=== PATIENT | female | born 1955 | race Caucasian/White ===

== ENCOUNTER 2016-12-09 05:51 | Inpatient (IN) | payer BC ==
--- NOTE | 2016-11-25 03:49 | HP ---
HISTORY AND PHYSICAL: DATE OF ADMISSION: 12/09/16 CHIEF COMPLAINT: Right hip pain. HISTORY OF PRESENT ILLNESS: This 61-year-old white female has had pain in her upper right thigh for several years. More recently when she is walking, she has pain in the right hip area. She has severe osteoarthritis and is scheduled with Dr. Doug Altman for a right total hip replacement at on 12/09/16. The patient is currently not working as of mid October because of her pain symptoms. PAST MEDICAL HISTORY: The patient is under the care of Dr. Sukumar Godwin. She has a history of migraines, depression, insomnia. She had a left wrist fracture that still causes her some stiffness and aching. PAST SURGICAL HISTORY: Includes a tonsillectomy as a child. She had her gallbladder removed in 2000 along with a donor right hepatic lobectomy. She has had a right knee arthroscopic procedure, and tubal ligation in the past. CURRENT MEDICATIONS: 1. Prozac 40 mg daily. 2. Claritin 10 mg daily. 3. Trazodone 50 mg b.i.d. p.r.n. 4. Ibuprofen 600 mg 1 to 2 times daily. 5. Tramadol 50 mg 1 to 2 daily p.r.n. pain symptoms. 6. She also takes supplements, vitamin D 1000 mg daily, vitamin C 500 mg yannick ALLERGIES: PENICILLIN has caused hives in the past. FAMILY HISTORY: Mother, diabetes. Father, prostate CA. Her mother, father, brother, and maternal aunt all have had some form of lymphoma. Maternal grandfather, diabetes. SOCIAL HISTORY: The patient lives alone in the [facility]. 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 Her daughter will be coming to help her recover from the hip replacement. She rarely drinks any alcohol and has never used tobacco. REVIEW OF SYSTEMS: She wears glasses. The last couple of weeks, she has been bringing up some white to yellow scant sputum every morning. She denies any cough, dyspnea, chest pain, palpitations or ankle edema symptoms. No GI or urinary symptoms. She does have arthritis of her cervical spine and has been having some low back pain issues, which she relates to the right hip. Otherwise , review of systems is negative to detailed questioning. PHYSICAL EXAMINATION GENERAL: This is a 61-year-old white female who is alert, pleasant, and cooperative. VITAL SIGNS: Height 5 feet 8 inches, weight 168 pounds and stable. Blood pressure 114/64, pulse 74 to 88. HEENT: Eyes: Pupils equal, round, react to light. Ears normal. Mouth: Tongue in midline. Teeth in good repair. Pharynx is clear. NECK: Supple. Good range of motion. No adenopathy. Thyroid benign. BACK: Normal curvature. No acute pain with palpation along the spine or CVA areas. LUNGS: Clear. HEART: Rhythm is regular. Apical pulse 88 beats per minute. EKG shows normal sinus rhythm, within normal limits. Atrial rate at 75. ABDOMEN: Scars from previous liver lobectomy procedure. Active bowel sounds. Otherwise, the abdomen is soft and nontender. No obvious masses or organomegaly. EXTREMITIES: The patient does ambulate unassisted. Joints not evaluated on this visit. She has no cyanosis. No edema. Skin is in good condition of her lower extremities. She does have multiple seborrheic keratoses of her back, trunk area; none look worrisome. IMPRESSION: The patient is medically stable and cleared for her upcoming right total hip replacement with Dr. Doug Altman on 12/09/16. JASS THORNTON NP CC: Sukumar Godwin MD; Doug Altman MD; [facility] * [id number]/CPS #: [id number] MTDD
--- NOTE | 2016-11-30 02:39 | HP ---
HISTORY AND PHYSICAL: DATE OF SURGERY/ADMISSION: 12/09/16 DATE OF OFFICE VISIT: 11/28/16 ATTENDING SURGEON: Doug Altman MD. PROCEDURE: Right total hip arthroplasty. CHIEF COMPLAINT: Right hip pain. HISTORY OF PRESENT ILLNESS: The patient is a very pleasant 61-year-old female who has had pain in her upper right thigh for several years and has failed conservative treatments such as antiinflammatories, hip injection, and physical therapy. She has elected to undergo a right total hip arthroplasty by Dr. Altman on 12/09/16. PAST MEDICAL HISTORY: 1. Migraines. 2. Depression. 3. Insomnia. 4. Healed left wrist fracture. 5. Osteoarthritis. PAST SURGICAL HISTORY: 1. Tonsillectomy. 2. Cholecystectomy 2000, with donor right hepatic lobectomy. 3. Right knee arthroscopy in 2010. 4. x1. 5. Tubal ligation. MEDICATIONS: 1. Prozac 40 mg one tablet daily. 2. Claritin 10 mg one tablet daily. 3. Trazodone 50 mg b.i.d. p.r.n. 4. Ibuprofen 600 mg 1 to 2 times daily p.r.n. 5. Tramadol 50 mg 1 to 2 tablets daily p.r.n. 6. Vitamin D. 7. Vitamin C. 8. Flexeril 10 mg p.r.n. ALLERGIES: PENICILLIN, with a reaction of hives. FAMILY MEDICAL HISTORY: Mother has diabetes, father has prostate cancer. History of lymphoma in mother, father, brother, and maternal aunt. Maternal grandfather has diabetes. SOCIAL HISTORY: The patient lives alone in the [place] area. 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 Her daughter will be coming to help her postoperatively. Rarely drinks alcohol, no tobacco use, and no IV drug use. REVIEW OF SYSTEMS: General: Negative for fevers, chills, or night sweats. No difficulty with anesthesia. HEENT: Negative for headaches, lightheadedness, or syncopal episodes. Integument: Negative for abrasions, lesions, open wounds or sores. Cardiothoracic: Negative for chest pain, palpitations or edema. Negative for hypertension. Pulmonary: Negative for shortness of breath with exertion, cough, or COPD. GI: Positive for constipation. Positive for GERD. Negative for nausea, vomiting or diarrhea. : Negative for nocturia, urinary frequency, urgency, history of UTIs, or kidney problems. Musculoskeletal: Positive for chronic bilateral back pain. Positive for chronic neck pain. Positive for hip pain. Neuro: Negative paresthesias or numbness. No history of seizure, stroke or epilepsy. Endocrine: Negative for diabetes or thyroid disease. Hematologic: Negative for easy bruising, anemia or excessive bleeding. No history of DVT. Infectious Disease: Negative for MRSA, hepatitis C or HIV. Recent cold bite symptoms x1. No fever or chills. PHYSICAL EXAMINATION GENERAL: Well appearing, in no acute distress, alert and oriented female, who appears younger than stated age. VITAL SIGNS: Blood pressure 135/72, pulse rate in the 80s, respiratory rate 16. HEENT: Normocephalic, atraumatic. EOMI. NECK: Supple. Trachea midline. PULMONARY: Lungs are clear to auscultation bilaterally. No crackles, rhonchi or wheezes. CARDIO: Regular rate and rhythm. No murmurs, gallops or rubs. No edema. ABDOMEN: Soft, nontender, nondistended. No organomegaly palpated. Negative CVA tenderness bilaterally. NEUROLOGIC: Alert and oriented x3. Cranial nerves grossly intact. Sensation is intact to light touch to bilateral lower extremities. MUSCULOSKELETAL: Posterior tibial pulses 2+ bilaterally, antalgic gait favoring the right side. Negative Twan's sign bilaterally. No edema noted in bilateral lower extremities. DIAGNOSTIC STUDIES/LAB DATA: Right hip x-ray dated 08/11/2016 shows severe bilateral osteoarthritic changes in the hip. IMPRESSION: The patient is a very pleasant 51-year-old female who has elected to undergo a right total hip replacement with Dr. Doug Altman on 12/09/16. She has undergone preoperative clearance by Dr. Godwin, who states that she is medically stable and cleared for her upcoming hip replacements. The patient wishes to be discharged home after her procedure. She will undergo preoperative testing after today's appointment. Postoperative medications including oxycodone 5 mg was sent to the patient's pharmacy for postoperative pain management as well as a prescription for Flexeril for the patient's current pain management. Laboratory data is within normal limits. The procedure was discussed with the patient at length and she had no further questions or concerns with regard to the planned procedure, she will follow up if any do arise in the future. JEY SORTO [id number]/[facility] #: [id number] CLARA
[~2016-12-09 05:51] MED LIST: Morphine INJ* 2 MG/ML 1 ML CARPUJECT IV PRN; PROCHLORPERAZINE INJ 5 MG/ML 2 ML VIAL IV PRN; fentaNYL* 50 MCG/ML 2 ML VIAL (100 MCG VIAL) IV PRN; oxyCODONE/Acetamin 5/325 MG* TAB PO PRN
[2016-12-09] MEDS ORDERED: Buffered Lidocaine 1% SYR 3ML* 3 ML/SYR SYRINGE INTRADERM ONE (06:00)
[2016-12-09] MEDS ORDERED: Famotidine IV* 10 MG/ML 2 ML (20 mg) IV ONE (06:00)
[2016-12-09] MEDS ORDERED: Clindamycin 900 MG IVPREMIX(* 900 MG/50 ML SDV IV ONE (06:14)
[2016-12-09] MEDS ORDERED: Buffered Lidocaine 1% SYR 3ML* 3 ML/SYR SYRINGE ONE (06:14)
[2016-12-09] MEDS ORDERED: Famotidine IV* 10 MG/ML 2 ML (20 mg) ONE (06:14)
[2016-12-09] MEDS ORDERED: Morphine PF AMP (0.5MG/ML)* 5 MG/10 ML AMP ONE (07:12)
[2016-12-09] MEDS ORDERED: Midazolam* 1 MG/ML 5 ML VIAL (5 MG) ONE (07:12)
[2016-12-09] MEDS ORDERED: fentaNYL* 50 MCG/ML 2 ML VIAL (100 MCG VIAL) ONE (07:12)
[2016-12-09] MEDS ORDERED: KETAMINE HCL* 50 MG/ML 10 ML VIAL ONE (07:12)
[2016-12-09] MEDS ORDERED: ceFAZolin 2 GM PREMIX (*) 2 GM/50 ML BAG IVPB ONE (07:26)
[2016-12-09] MEDS ORDERED: Scopolamine 1.5 mg* PATCH ONE (08:12)
[2016-12-09] MEDS ORDERED: Dexamethasone IV* 4 MG/ML 1 ML (4 MG) ONE (08:12)
[2016-12-09] MEDS ORDERED: Ondansetron INJ* 2 MG/ML VIAL ONE (08:12)
[2016-12-09] MEDS ORDERED: Phenylephrine INJ* 10 MG/ML 1 ML VIAL (10 MG) ONE (08:12)
[2016-12-09] MEDS ORDERED: Propofol* 500 MG/50 ML BTL ONE (08:12)
[2016-12-09] MEDS ORDERED: Lidocaine 2% PF* 10 ML AMP ONE (08:12)
[2016-12-09] MEDS ORDERED: Ondansetron INJ* 2 MG/ML VIAL IV PRN ×2 (08:18→09:52)
[2016-12-09] MEDS ORDERED: PROCHLORPERAZINE INJ 5 MG/ML 2 ML VIAL IV PRN (08:18)
[2016-12-09] MEDS ORDERED: Naloxone* 0.4 MG/ML 1 ML VIAL IV PRN (08:18)
[2016-12-09] MEDS ORDERED: Acetaminophen TAB* 325 MG PO PRN (09:47)
[2016-12-09] MEDS ORDERED: Morphine INJ* 2 MG/ML 1 ML CARPUJECT IV PRN (09:52)
[2016-12-09] MEDS ORDERED: Bisacodyl SUPP* 10 MG SUPP PR PRN (09:52)
[2016-12-09] MEDS ORDERED: oxyCODONE TAB* 5 MG TAB PO PRN (09:52)
[2016-12-09] MEDS ORDERED: traZODone TAB* 50 MG TAB PO PRN (09:52)
[2016-12-09] MEDS ORDERED: Polyethylene Glycol 3350* 17 GM PACKET PO PRN (09:52)
[2016-12-09] MEDS ORDERED: Magnesium Hydroxide LIQ* 30 ML UDC PO PRN (09:52)
--- NOTE | 2016-12-09 10:25 | RAD ---
INDICATION: Postoperative study status post total right hip replacement surgery. TECHNIQUE: An AP view of the pelvis was obtained. FINDINGS: The patient is status post total right hip replacement surgery. The bones and prostheses are in normal alignment. There is air within the soft tissues around the right hip and several surgical abiola present laterally consistent with recent postoperative changes. There is moderate to severe osteoarthritic change in the left hip. IMPRESSION: STATUS POST TOTAL RIGHT HIP REPLACEMENT SURGERY, NORMAL POSTOPERATIVE APPEARANCE.
[2016-12-09] MEDS: Nalbuphine* 20 MG/ML 1 ML VIAL IV PRN ×3 (11:44→23:13)
[2016-12-09] MEDS: Ascorbic Acid TAB* 500 MG PO SCH (11:44)
--- NOTE | 2016-12-09 14:08 | OP ---
DATE OF OPERATION: 12/09/16 - ROOM #341 DATE OF : 51 SURGEON: Doug Altman MD SURGICAL CARE: Right hip. ASSISTANTS: 1. JEY Newsome, Websphere Administrator. 2. An Talley, Machine Trimmer. ANESTHESIOLOGIST: Dr. Juan Hernandez ANESTHESIA: Spinal with Duramorph and IV sedation. PRE-OP DIAGNOSIS: Severe arthritis of the right hip. POST-OP DIAGNOSIS: Severe arthritis of the right hip. OPERATIVE PROCEDURE: Right total hip replacement. COMPONENT UTILIZED: Caitlin components were utilized. A Continuum cup 50 mm outer diameter with cluster holes and 1 screw. An elevated liner for a 32 head was utilized and the elevation was placed posteriorly on the femoral side and ML Taper standard stem size 9 with a +0, 32-mm cobalt chrome head. INDICATIONS: Severe arthritis of the right hip. It has been no longer responsive to nonoperative care and a right total hip replacement was recommended. COMPLICATIONS: There were no complications. DRAINS: There were no drains. BLOOD LOSS: 150 mL. REPLACEMENT: Crystalloid fluid. DESCRIPTION OF PROCEDURE: The patient was brought to the operating room and placed on the operating room table in supine position. Following the administration of the spinal, the patient was returned to the supine position. A Fischer catheter was inserted. She was placed in the left lateral position with axillary padding and there was no pressure on the peroneal nerve at the fibular head on the left leg. The pelvis was secured over the ASIS and the sacrum with hip positioner. The groin was carefully sealed off. Blankets were placed between the knees and the right hip was given a preliminary chlorhexidine prep and then a final ChloraPrep followed by draping. Once we prepped, draped and sealed off, we did our universal protocol time-out, confirming Lawanda Sakowski and a plan for right total hip replacement. We all agreed and we proceeded. The hip was approached with a slightly curving posterolateral skin incision going from the greater trochanter distally for an 1 - 1/2 inches and proximally and posteriorly for 2-1/2 to 3 inches. Skin and subcu divided. Hemostasis was checked and achieved throughout the case utilizing electrocautery. The iliotibial band was opened in line with the skin incision as well as the fascia where the gluteus ladi. A Charnley retractor was inserted. The patient had some tendinitis of the gluteus medius, especially anteriorly. The gluteus medius and minimus were retracted anteriorly with blunt Hohmann retractors and the piriformis and conjoint tendon were undone from their piriformis fossa insertions, each was marked with a separate #2 Surgidac suture and this stitch also included the underlying capsular flap. The hip had clear goldish synovial fluid and a careful posterior approach of the hip was done with careful hemostasis. The hip was dislocated without difficulty. The femoral neck was marked about a fingerbreadth proximal to the lesser trochanter and then divided carefully with a saw. Head and neck removed. The head had synovitis on the superior neck and the complete loss of cartilage on the weightbearing surface with cartilage loss elsewhere as well. On the acetabulum , we used sharp Hohmann anteriorly and posteriorly and blunt Hohmann superiorly and inferiorly and removed the remainder of the labrum posteriorly, superiorly, and anteriorly. The medial osteophyte was carefully removed. Anterior osteophyte was removed after I got the acetabulum in and posterior osteophyte was also excised. The acetabulum was cleaned and then the excess synovium removed as well as the superior side of the transverse acetabular ligament. Reaming was done 44 through 48 and then 49 and 50, we had nice bleeding subchondral cancellous bone. A 50 Continuum cup was impacted into position after cleaning the acetabulum several times with pulse saline and drying. The cup was impacted and positioned in 45 degrees of abduction, 20 degrees of anteversion, and it was bottom down nicely and then a screw was placed superiorly in the elevator liner posteriorly after irrigating again. On the femoral side, we used a canal finder. The trochanteric reamer broaching was done 4 through 9 and at 9, we had a nice tight fit. A trial reduction was done with a 9 broach standard stem and a +0 head and this seemed to be a very satisfactory soft tissue fit. There was no push-pull. There was no levering with IR and ER and flexion of 90 degrees allowed IR and adduction approaching 30 to 40 degrees prior to dislocation. The femoral canal was cleaned with pulse saline. A 9 standard ML Taper was impacted into position in approximately 15 to 20 degrees of anteversion and the trunnion was then cleaned and a +0, 32- mm head was impacted into position. Two drill holes were made through the posterosuperior greater trochanter for reattachment of the piriformis and conjoint tendon on the posterior capsular flap. Careful hemostasis was checked and achieved once again during closure. We irrigated several times during closure with the pulse saline and we swabbed the soft tissues with clean lap sponges. The muscles were reapproximated. The iliotibial band repaired with interrupted #1 Polysorbs in [id number] fashion and on the gluteus ladi more proximally, we used 0 Polysorb. We used 0 and then 2-0 Polysorb on the deep subcu and superficial subcu and then abiola on the skin. The skin was washed and dried and covered with Betadine-soaked release followed by sterile gauze and ABD pad and then paper tape. The patient was returned to the supine position and then to the hospital bed into the recovery room in stable and satisfactory condition having tolerated the procedure very well. The dorsalis pedis pulse was 2+ at the end of the case. CC: Dr. Godwin.* [id number]/[facility] #: [id number] MTDD
[2016-12-09] MEDS: Docusate CAP* 100 MG PO SCH (21:22)
[2016-12-09] MEDS: Ketorolac INJ* 30 MG/ML 1 ML VIAL IV PRN (21:45)
[2016-12-10] MEDS: oxyCODONE/Acetamin 5/325 MG* TAB PO PRN ×3 (02:01→23:59)
[2016-12-10 06:52] LABS: Hematocrit 37 % (35-47); Hemoglobin 12.4 g/dl (12.0-16.0)
[2016-12-10 07:47] LABS: BUN/Creatinine Ratio 25.4 (8-20); Calcium 9.2 mg/dL (8.6-10.3); EGFR African American 106.9 (>60); EGFR Non-African American 83.1 (>60); Potassium 4.3 mmol/L (3.5-5.0)
[2016-12-10] MEDS: Aspirin TAB* 325 MG PO SCH (08:52)
[2016-12-10] MEDS: Cetirizine* 10 MG TAB PO SCH (08:52)
[2016-12-10] MEDS: Magnesium Oxide TAB* 400 MG PO SCH (08:52)
[2016-12-10] MEDS: Cholecalciferol TAB* 1000 UNITS PO SCH (08:52)
[2016-12-10] MEDS: Ascorbic Acid TAB* 500 MG PO SCH (08:52)
[2016-12-10] MEDS: FLUoxetine CAP* 20 MG PO SCH (08:53)
[2016-12-10] MEDS: Docusate CAP* 100 MG PO SCH ×2 (08:53→20:56)
[2016-12-10] MEDS: diPHENhydraMINE IV* 50 MG/ML 1 ml VIAL (BENADRYL) IV PRN ×2 (10:31→20:56)
--- NOTE | 2016-12-10 11:02 | PN ---
Progress Note - Progress Note Note: Anesthesia duramorph followup: the pain has no pain, VSS, no headache, neuro intact. Unfortunately she has severe itching, she's had Nubain, and just had some benadryl. She is better now, if she worsens again, she will let the staff know to contact me.
[2016-12-10] MEDS ORDERED: Dexamethasone TAB* 4 MG PO ONE (13:00)
[2016-12-10] MEDS ORDERED: Nalbuphine* 20 MG/ML 1 ML VIAL IV ONE (13:00)
[2016-12-10] MEDS ORDERED: Nalbuphine* 20 MG/ML 1 ML VIAL IV PRN (17:56)
[2016-12-10] MEDS: Ketorolac INJ* 30 MG/ML 1 ML VIAL IV PRN (20:57)
[2016-12-11 06:46] LABS: Hematocrit 38 % (35-47); Hemoglobin 12.6 g/dl (12.0-16.0)
[2016-12-11] MEDS: Cholecalciferol TAB* 1000 UNITS PO SCH (08:06)
[2016-12-11] MEDS: Magnesium Oxide TAB* 400 MG PO SCH (08:06)
[2016-12-11] MEDS: Docusate CAP* 100 MG PO SCH ×2 (08:06→21:39)
[2016-12-11] MEDS: Ascorbic Acid TAB* 500 MG PO SCH (08:06)
[2016-12-11] MEDS: FLUoxetine CAP* 20 MG PO SCH (08:07)
[2016-12-11] MEDS: Cetirizine* 10 MG TAB PO SCH (08:07)
[2016-12-11] MEDS: Aspirin TAB* 325 MG PO SCH (08:07)
[2016-12-11] MEDS: oxyCODONE/Acetamin 5/325 MG* TAB PO PRN ×4 (08:07→21:44)
[2016-12-11] MEDS: Calcium Carbonate CHEW TAB* 500 MG (TUMS) PO PRN ×2 (11:37)
[2016-12-12 07:22] LABS: Hematocrit 37 % (35-47); Hemoglobin 12.4 g/dl (12.0-16.0)
[2016-12-12] MEDS: Magnesium Oxide TAB* 400 MG PO SCH (07:55)
[2016-12-12] MEDS: Aspirin TAB* 325 MG PO SCH (07:55)
[2016-12-12] MEDS: Docusate CAP* 100 MG PO SCH (07:55)
[2016-12-12] MEDS: FLUoxetine CAP* 20 MG PO SCH (07:55)
[2016-12-12] MEDS: Cetirizine* 10 MG TAB PO SCH (07:55)
[2016-12-12] MEDS: Cholecalciferol TAB* 1000 UNITS PO SCH (07:56)
[2016-12-12] MEDS: oxyCODONE/Acetamin 5/325 MG* TAB PO PRN ×2 (07:56→12:11)
[2016-12-12] MEDS: Ascorbic Acid TAB* 500 MG PO SCH (07:56)
[2016-12-12] MEDS ORDERED: Scopolamine PATCH Remove* 1 NOTE MISC PATCH OFF ONE (09:00)
--- NOTE | 2016-12-12 10:24 | PN ---
Progress Note - Progress Note SOAP: Subjective: POD #3 Right MARY. Doing well, pain well controlled. Denies CP/SOB or calf pain. + BM, appetite good Objective: Vital Signs: Temp Pulse Resp BP Pulse Ox 97.8 F 72 16 123/60 94 12/12/16 07:31 12/12/16 07:31 12/12/16 07:56 12/12/16 07:31 12/12/16 07:31 Gen: A & Ox3, NAD at rest laying in bed Right hip: Dressing C/D/I. Thigh soft, mild ttp. + f/e at knee, ankle, and MTPs Laboratory Results - last 24 hr 12/12/16 06:56 Hgb 12.4 Hct 37 Assessment: POD #3 Right MARY Plan: D/c home today VNS for PT and wound care, abiola out 12/21/16 ASA 325mg po q day for DVT ppx x 3 weeks F/u with Dr. Altman 6 week or prn
[2016-12-12 12:14] VITALS: BP 141/68
--- NOTE | 2016-12-13 08:59 | DS ---
DISCHARGE SUMMARY: DATE OF ADMISSION: 12/09/16 DATE OF DISCHARGE: 12/12/16 ADMITTING DIAGNOSIS: Severe end-stage osteoarthritis of the right hip. DISCHARGE DIAGNOSIS: Severe end-stage osteoarthritis of the right hip, status post right total hip arthroplasty. SECONDARY DIAGNOSES: 1. Migraines. 2. Depression. 3. Insomnia. HISTORY OF PRESENT ILLNESS: Ms. Ding is a 61-year-old female who has had ongoing pain in her upper right thigh and hip for several years. She failed conservative treatment such as antiinflammatories, cortisone injection into the hip, and physical therapy, she elected to undergo total hip arthroplasty by Dr. Altman. HOSPITAL COURSE: On 12/09/16, the patient was admitted to [facility] and underwent a successful right total hip arthroplasty by Dr. Altman. She recovered briefly in the postanesthesia care unit and was transferred to the short stay surgical unit in stable condition. On postop day 1, the patient was able to get out of bed with physical therapy and ambulate a short distance with the use of the rolling walker. Her pain was well controlled with oral pain medication only. Her H and H was 12.4 and 37. Her Fischer catheter was removed on postop day 1 and she was able to void without difficulty. Postop day 2, the patient's pain continued to be well controlled with oral pain medication and H and H 12.6 and 38. She was able to participate in physical therapy without difficulty and ambulate with the use of the rolling walker and minimal assistance. The patient did have a bowel movement on postop day 2. She stated that her appetite was good and was compliant with her posterior hip precautions. On postop day 3, the patient continued to have good pain control with oral pain medications. H and H was stable at 12.4 and 37, and she was ambulating without assistance with a rolling walker. Throughout her hospital course, the patient was afebrile and normotensive. On postop day 3, the patient was found stable for discharge home. DISCHARGE MEDICATIONS: The patient will have: 1. Percocet 5/325, 1 to 2 tabs p.o. q.4 to 6 hours as needed for pain. 2. Colace 100 mg p.o. b.i.d. as needed for constipation. 3. Aspirin 325 mg p.o. daily for DVT prophylaxis. The patient will resume her home medications of: 1. Trazodone 50 mg p.o. q.h.s. p.r.n. 2. Magnesium 250 mg p.o. q. day. 3. Claritin 10 mg p.o. q. day. 4. Ibuprofen 600 mg p.o. b.i.d. p.r.n. 5. Prozac 40 mg p.o. q. day. 6. Feverfew 10 mg p.o. daily. 7. Vitamin D 1000 units p.o. q. day with vitamin C 500 mg p.o. q. day. 8. Calcium 600 mg p.o. q. day. 9. Calcium carbonate tabs 1000 mg p.o. q.4 hours p.r.n. indigestion. DISCHARGE INSTRUCTIONS: The patient is understanding to keep her incision clean and dry until postop day 4, at that time she may shower normally and wash the wound with soap and water. She is understanding not to submerge the wound in a bathtub, hot tub or swimming pool. She is to to apply dry dressing as needed. She was again reminded of the posterior hip precautions not to flex past 90 degrees at the hip, cross her legs over, or turn her toes inward. She will have visiting nurse service for wound care and have staple removal on 12/21. She will also have home physical therapy. She will follow up in the office with Dr. Altman 4 to 6 weeks postoperatively or as needed. She is understanding to go to the emergency room with any chest pain, shortness of breath, fever greater than 101.5, calf pain or swelling. All of her questions were answered to her full satisfaction. JEY CONNELLY [id number]/[facility] #: [id number] CLARA
== END 2016-12-12 12:25 | disposition home health service (06) | DRG 301 ==
LOC: AA 05:51 → SSU 11:13
PROVIDERS: ADMIT Orthopaedic Surgery; ATTEND Orthopaedic Surgery
PROC: 0SR904Z Replacement of Right Hip Joint with Ceramic on Polyethylene Synthetic Substitute, Open Approach (ICD-10-PCS; principal; 2016-12-09 07:30)
DX: M16.11 Unilateral primary osteoarthritis, right hip (principal); F32.9 Major depressive disorder, single episode, unspecified; G47.00 Insomnia, unspecified; G43.909 Migraine, unspecified, not intractable, without status migrainosus; Z79.82 Long term (current) use of aspirin; Z88.0 Allergy status to penicillin; Z98.51 Tubal ligation status; Z83.3 Family history of diabetes mellitus; Z80.7 Family history of other malignant neoplasms of lymphoid, hematopoietic and related tissues; Z80.42 Family history of malignant neoplasm of prostate; G89.29 Other chronic pain; M54.5 Low back pain; L29.9 Pruritus, unspecified
CPT/HCPCS: 36415; 72170; 80048; 85014; 85018; 88304; 88311; 94760; A9270-GY; C1713; C1776; J0690; J1100; J1200; J1885; J2001; J2250; J2300; J2405; J2704; J3010; J8540

== ENCOUNTER 2017-09-22 06:03 | Inpatient (IN) | payer BC ==
--- NOTE | 2017-09-15 18:52 | HP ---
PREOPERATIVE HISTORY AND PHYSICAL: DATE OF SURGERY/ADMISSION: 09/22/17 DATE OF OFFICE VISIT/ENCOUNTER: 09/14/17 PRIMARY CARE PHYSICIAN: Dr. Steffany Head. ATTENDING PHYSICIAN: Doug Altman MD * (DICTATED BY JEY FRANCE) PROCEDURE: Left total hip arthroplasty. CHIEF COMPLAINT: Left hip pain. HISTORY OF PRESENT ILLNESS: This is a 62-year-old female with severe arthritis of her left hip. She has had progressive symptoms and is no longer responsive to nonoperative care. Her ability to walk any distance is limited because of left hip pain and she also has trouble with activities of daily life such as putting on her left sock and shoe. Dr. Altman is recommending surgical intervention at this time in the form of a left total hip arthroplasty and the patient has consented to proceed. PAST MEDICAL HISTORY: 1. Migraines. 2. Depression/anxiety. 3. Seasonal allergies. PAST SURGICAL HISTORY: 1. Right knee arthroscopy. 2. Right total hip arthroplasty. 3. . 4. Tubal ligation. 5. Right hepatic lobectomy in 1999; the patient was a donor. CURRENT MEDICATIONS: 1. Calcium. 2. Loratadine. 3. Magnesium 500 mg daily. 4. Prozac 20 mg daily. 5. Trazodone HCl. ALLERGIES: 1. CAPSAICIN, causes tightness in the chest. 2. PENICILLIN, reaction unknown. 3. OXYCODONE, severe itching. FAMILY HISTORY: Lymphoma and diabetes. 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 She denies tobacco use and recreational drug use. She drinks alcohol on rare occasion. REVIEW OF SYSTEMS: General: Negative for fevers, chills, or night sweats. No known anesthesia problems. HEENT: Positive for occasional migraine headache. Negative for lightheadedness or syncopal episodes. Integumentary: Negative for abrasions, lesions, or open wounds. Cardiothoracic: Negative for hypertension , chest pain, palpitations, and edema. Pulmonary: Positive for seasonal allergies. Negative for shortness of breath with exertion, chronic cough, or COPD. GI: Negative for nausea, vomiting, diarrhea, constipation, or GERD. : Negative for nocturia, urinary frequency, urgency, history of UTIs, or kidney problems. Musculoskeletal: Positive for current complaint. Negative for chronic or intermittent back pain or history of fractures. Neurologic: Negative for paresthesias, numbness, history of seizure, stroke, or epilepsy. Positive for anxiety/depression. Endocrine: Negative for diabetes or thyroid issues. Hematologic: Negative for easy bruising, anemia, excessive bleeding, or history of DVT. Infectious Disease: Negative for history of MRSA, hepatitis C, or HIV. PHYSICAL EXAMINATION GENERAL: Well-developed, well-nourished, 62-year-old female in no acute distress. VITAL SIGNS: Height 5 feet 8 inches, weight 166 pounds, blood pressure 118/72, pulse rate 60. HEENT: Normocephalic, atraumatic. Pupils are equal, round, and reactive to light and accommodation. Extraocular movements are intact. Throat is clear. NECK: Supple. No palpable lymph nodes. PULMONARY: Lungs are clear to auscultation bilaterally. No wheezes, rales, or rhonchi. CARDIOVASCULAR: Regular rate and rhythm. S1 and S2. No murmurs, rubs, or gallops. No edema. ABDOMEN: Positive bowel sounds, soft, nontender. NEUROLOGICAL: Alert and oriented x3. Cranial nerves II through XII are intact. Sensation is intact to light touch. MUSCULOSKELETAL: The patient ambulates with an antalgic gait favoring the left leg. On exam of her left hip, she has painful range of motion, some discomfort with straight leg raising and side lying leg raising. Abduction and flexion of left hip are with pain and internal rotation and external rotation with discomfort. There is no swelling of legs, ankles, or feet. Neurovascular function is intact. IMAGING STUDIES: X-rays of the left hip shows severe degenerative arthritis with [id number] sclerosis, osteophyte formation, and some cysts. IMPRESSION: Severe arthritis, left hip. PLAN: The patient is scheduled to undergo a left total hip arthroplasty with Dr. Altman on 09/22/17. She will return to the office 2 weeks postop for followup and suture removal. A prescription for [place] was e-scribed to the patient's pharmacy for postoperative pain management, she will use Colace p.r.n. for narcotic-induced constipation and she will use aspirin for DVT prophylaxis. She has received clearance to proceed with surgery from her primary care physician, Dr. Steffany Head. JEY FRANCE [id number]/[facility] #: [id number] [facility]ITAL[facility]anga
[~2017-09-22 06:03] MED LIST changes: +Buffered Lidocaine 0.9% SYRIN* 5 ML/SYR SYRINGE INTRADERM ONE; -Morphine INJ* 2 MG/ML 1 ML CARPUJECT IV PRN; -PROCHLORPERAZINE INJ 5 MG/ML 2 ML VIAL IV PRN; -fentaNYL* 50 MCG/ML 2 ML VIAL (100 MCG VIAL) IV PRN; -oxyCODONE/Acetamin 5/325 MG* TAB PO PRN
[2017-09-22] MEDS ORDERED: Buffered Lidocaine 0.9% SYRIN* 5 ML/SYR SYRINGE ONE (06:07)
[2017-09-22] MEDS ORDERED: Clindamycin 900 MG IVPREMIX(* 0 MG/0 ML SDV IV ONE (06:07)
[2017-09-22] MEDS ORDERED: fentaNYL* 50 MCG/ML 2 ML VIAL (100 MCG VIAL) ONE (07:19)
[2017-09-22] MEDS ORDERED: Midazolam* 1 MG/ML 2 ML VIAL (2 MG) ONE ×3 (07:20→09:03)
[2017-09-22] MEDS ORDERED: ceFAZolin 2 GM PREMIX (*) 2 GM/50 ML BAG IVPB ONE (07:20)
[2017-09-22] MEDS ORDERED: Morphine INJ* 10 MG/ML 1 ML CARPUJECT ONE (07:33)
[2017-09-22] MEDS ORDERED: Morphine PF AMP (0.5MG/ML)* 5 MG/10 ML AMP ONE (07:33)
[2017-09-22] MEDS ORDERED: Bupivacaine 0.5% SDV PF* 30 ML VIAL ONE (07:40)
[2017-09-22] MEDS ORDERED: Dexamethasone IV* 4 MG/ML 1 ML (4 MG) ONE (07:59)
[2017-09-22] MEDS ORDERED: EPHEDrine (Pressors)* 50 MG/ML VIAL ONE (07:59)
[2017-09-22] MEDS ORDERED: Famotidine IV* 10 MG/ML 2 ML (20 mg) ONE (07:59)
[2017-09-22] MEDS ORDERED: Lidocaine 2% PF * 5 ML VIAL ONE (08:11)
[2017-09-22] MEDS ORDERED: Propofol* 10 MG/ML 20 ML BTL IV PUSH ONE ×2 (08:11→09:26)
[2017-09-22] MEDS ORDERED: diPHENhydraMINE IV* 50 MG/ML 1 ml VIAL (BENADRYL) ONE ×2 (09:01→10:35)
[2017-09-22] MEDS ORDERED: DiMENhydriNATE IV* 50 MG/ML VIAL IV PUSH PRN (09:12)
[2017-09-22] MEDS ORDERED: Acetaminophen TAB* 325 MG PO PRN ×2 (09:12→10:22)
[2017-09-22] MEDS ORDERED: Morphine INJ* 2 MG/ML 1 ML CARPUJECT IV PRN (09:12)
[2017-09-22] MEDS ORDERED: fentaNYL* 50 MCG/ML 2 ML VIAL (100 MCG VIAL) IV PRN (09:12)
[2017-09-22] MEDS ORDERED: Scopolamine 1.5 mg* PATCH TRANSDERM PRN (09:14)
[2017-09-22] MEDS ORDERED: PROCHLORPERAZINE INJ 5 MG/ML 2 ML VIAL IV PRN (09:14)
[2017-09-22] MEDS ORDERED: Naloxone* 0.4 MG/ML 1 ML VIAL IV PRN (09:14)
[2017-09-22] MEDS ORDERED: Naloxone* 2 MG in NS 0.9% 250 ML* 250 ML IV PRN (09:14)
[2017-09-22] MEDS ORDERED: Nalbuphine* 20 MG/ML 1 ML VIAL IV PRN ×2 (09:14)
[2017-09-22] MEDS ORDERED: Ondansetron INJ* 2 MG/ML VIAL IV PRN (09:14)
[2017-09-22] MEDS ORDERED: Scopolamine PATCH Remove* 1 NOTE MISC PATCH OFF PRN (09:14)
[2017-09-22] MEDS ORDERED: HYDROcodone/ACETAMIN 5-325 MG* 1 TAB PO PRN (09:14)
[2017-09-22] MEDS ORDERED: Hetastarch in NS* 500 ML IV ONE (09:21)
[2017-09-22] MEDS ORDERED: Ketorolac INJ* 30 MG/ML 1 ML VIAL ONE (10:01)
[2017-09-22] MEDS ORDERED: Magnesium Hydroxide LIQ* 30 ML UDC PO PRN (10:22)
[2017-09-22] MEDS ORDERED: traZODone TAB* 50 MG TAB PO PRN (10:31)
[2017-09-22] MEDS: diPHENhydraMINE IV* 50 MG/ML 1 ml VIAL (BENADRYL) IV PRN ×3 (10:38→19:41)
[2017-09-22] MEDS ORDERED: Nalbuphine* 20 MG/ML 1 ML VIAL ONE (10:57)
[2017-09-22] MEDS ORDERED: Desflurane* 240 ML INH ONE (11:17)
[2017-09-22] MEDS ORDERED: Acetaminophen TAB* 325 MG ONE (11:29)
[2017-09-22] MEDS: Acetaminophen TAB* 325 MG PO SCH ×4 (11:30→21:37)
--- NOTE | 2017-09-22 11:34 | RAD ---
HISTORY: Status post left hip arthroplasty COMPARISONS: December 09, 2016 VIEWS: 1, Single frontal view of the pelvis . The right iliac crest is cut off FINDINGS: BONE DENSITY: Normal. BONES: The patient is status post bilateral hip arthroplasty. JOINTS: The patient is status post bilateral hip arthroplasty. ALIGNMENT: There is no dislocation. SOFT TISSUES: Unremarkable. OTHER FINDINGS: None. IMPRESSION: STATUS POST BILATERAL HIP ARTHROPLASTY.
--- NOTE | 2017-09-22 13:12 | OP ---
DATE OF OPERATION: 09/22/17 - ROOM #343 DATE OF : 51 SURGICAL CARE: Left hip. SURGEON: Doug Altman MD ACID PUMPER: JEY Vergara ROLL INSPECTOR: An Talley, [facility] ANESTHESIOLOGIST: Dr. Manzanares. ANESTHESIA: Spinal. PRE-OP DIAGNOSIS: Severe arthritis of the left hip. POST-OP DIAGNOSIS: Severe arthritis of the left hip. OPERATIVE PROCEDURE: Left total hip replacement. COMPONENTS UTILIZED: Caitlin Continuum cup 50-mm outer diameter with 1 screw and elevated liner located posteriorly for a 32 head on the femoral side. There was Caitlin M/L taper standard stem size 9 with a -3.5, 32-mm cobalt- chrome head. COMPLICATIONS: There were no complications. DRAINS: There were no drains. ESTIMATED BLOOD LOSS: 250 mL. REPLACEMENT: Crystalloid fluids. OPERATIVE INDICATIONS: Severe arthritis of the left hip, it has been no longer responsive to nonoperative care, limited walking distance, painful range of movement of the hip and [id number] arthritis on the x-ray. The patient is also status post right total hip replacement. DESCRIPTION OF PROCEDURE: The patient was brought to the operating room and placed on the operating room table in the supine position following the spinal was done with the patient done seated. She was returned to the supine position. A Fischer catheter was inserted. She was placed in the right lateral position, the downside axilla padded, the downside right leg padded, so there was no pressure on the peroneal nerve with the fibular head and neck. The pelvis was secured over the ASIS and the sacrum. The groin was sealed off and a folded blanket was also placed under the right greater trochanter to elevate the pelvis. The hip positioner purchased on the sacrum in the ASIS. The groin was sealed off and the left hip was given a preliminary chlorhexidine prep and then a final formal ChloraPrep for the left lower extremity from the lower ribs to the foot. After prepping, draping and sealing off, we did our universal protocol time-out confirming Lawanda Ding and the plan for left total hip replacement. We all agreed and we proceeded. The Ancef surgical prophylaxis was utilized. The hip was approached with a posterolateral skin incision, going from the greater trochanter distally for an inch and a half and curving proximally and posteriorly for 2-1/2 to 3 inches. Skin and subcu divided down to the deep fascia. The deep fascia was divided over the greater trochanter, dividing the iliotibial band. After this, Charnley retractor was inserted. Minimal trochanteric bursectomy was completed. The posterior aspect of the gluteus medius and the greater trochanter exposed and then a blunt Hohmann retractor was inserted underneath the gluteus medius exposing the piriformis tendon. The piriformis and conjoint tendons were carefully incised from their piriformis fossa insertions and the hip was entered along the superior aspect of the piriformis tendon. The hip had clear synovial fluid. A careful posterior approach to the hip was done with careful hemostasis. A #2 Surgidac sutures were utilized to ninfa the piriformis tendon and the underlying capsular flap and the conjoint tendon in the underlying capsular flap. After this exposure was completed, then the gluteus minimus was also protected with the blunt Hohmann retractor and superior capsulotomy was performed. The hip was dislocated without any difficulty. The femoral neck cut was marked with the cutting guide for the M/L taper stem and the femoral neck was cut about a fingerbreadth proximal to the lesser trochanter. Retraction for the acetabulum was sharp Hohmann's anteriorly and posteriorly, blunt Hohmann's superiorly and inferiorly. The remains of the acetabular labrum were excised sharply, posterior, superior, and anteriorly. The medial osteophyte was excised. An osteophyte was removed posterior inferior and anterior inferior. We had a nice view of the acetabulum at this point. A reaming was done 44 through 50 and at 50, we had nice bleeding subchondral and cancellous bone. A 50 Continuum cup was impacted into position after irrigating the acetabulum several times with pulsed saline. The cup was impacted into 45 degrees of abduction and 20 degrees of anteversion with a nice tight fit and a screw was placed superiorly. An elevated liner was placed posteriorly. Attention was turned to the femoral side after packing the acetabulum. On the femoral side, we used a canal finder. Trochanteric reamer broaching was done size 5 through size 9 and we did a trial reduction with a 9 broach standard neck and a +0 head and this was too tight, so we elected to use a -3.5 neck. The final size 9 M/L taper standard stem was impacted into position and 15 to 20 degrees of anteversion. The trunnion was cleaned and a -3.5 32-mm cobalt- chrome head was impacted into position. The hip was reduced. There was no tendency for push pull and extension and the hip was stable in 90 degrees passive flexion with IR and adduction approaching 30 to 40 degrees prior to dislocation. I felt the soft tissue tension was very satisfactory. We achieved careful hemostasis during the closure. We irrigated during closure with saline and swabbed the soft tissues with clean lap sponges. The piriformis and conjoint tendon were reapproximated to the posterior superior greater trochanter through 2 drill holes. The fascia cora closed with interrupted #1 Vicryl. Distally and then more proximally, we used 0 Vicryl and the deep and superficial subcu closed with 0 Vicryl and then 2-0 Vicryl and then abiola on the skin. Everything was washed and dried. We irrigated several times during closure with the saline and then a dressing was done over the abiola with Betadine-soaked release, sterile gauze, ABD pad, and then paper tape. The patient was returned to the hospital bed and to the recovery room in stable and satisfactory condition, having tolerated the procedure very well. [id number]/[facility] #: [id number] CLARA
[2017-09-22] MEDS: Magnesium Oxide TAB* 400 MG PO SCH ×2 (16:30→17:20)
[2017-09-22] MEDS: ceFAZolin 1 GM VIAL(*) 1 GM in NS 0.9% 50 ML* 50 ML IVPB SCH (16:32)
[2017-09-22] MEDS ORDERED: DiMENhydriNATE IV* 50 MG/ML VIAL ONE (17:17)
[2017-09-22] MEDS: DiMENhydriNATE IV* 50 MG/ML VIAL IV PUSH PRN (17:18)
[2017-09-22] MEDS: Cetirizine* 10 MG TAB PO SCH (17:19)
[2017-09-22] MEDS: Docusate CAP* 100 MG PO SCH (21:36)
[2017-09-22] MEDS ORDERED: Morphine INJ* 2 MG/ML 1 ML SYRINGE (TWO MG - NEW SYRINGE VERSION) IV PRN (23:48)
[2017-09-23] MEDS: ceFAZolin 1 GM VIAL(*) 1 GM in NS 0.9% 50 ML* 50 ML IVPB SCH ×2 (00:22→08:55)
[2017-09-23] MEDS: DiMENhydriNATE IV* 50 MG/ML VIAL IV PUSH PRN ×2 (03:03→08:17)
[2017-09-23] MEDS: HYDROcodone/ACETAMIN 5-325 MG* 1 TAB PO PRN ×4 (05:26→19:23)
[2017-09-23 06:55] LABS: Hematocrit 30 % (35-47); Hemoglobin 10.3 g/dl (12.0-16.0)
[2017-09-23 07:05] LABS: Comments Flag Yes
[2017-09-23 07:12] LABS: BUN/Creatinine Ratio 22.6 (8-20); Calcium 8.7 mg/dL (8.6-10.3); EGFR African American 124.6 (>60); EGFR Non-African American 96.9 (>60); Potassium 4.1 mmol/L (3.5-5.0)
--- NOTE | 2017-09-23 07:55 | PN ---
Progress Note - Progress Note Date of Service: 09/23/17 Note: 98.6 temp, H/H 10.3/30%, basic profile satisfactory. Intake and output are good. X-ray left hip post op is satisfactory. Ancef used for musa op prophylaxsis. Hip pain at rest is nil and some pain with left hip flexion of 70 degrees. Awake, alert, cooperative, breathing easily. Left hip is dry. Left DP is 2 plus. Left ankle active up and down movements. Impression: Stable, acute blood loss anemia. Plans: Up with walker, drinking, and incentive spirometer.
[2017-09-23] MEDS: Ascorbic Acid TAB* 500 MG PO SCH ×2 (08:55→09:01)
[2017-09-23] MEDS: Docusate CAP* 100 MG PO SCH ×2 (08:55→20:25)
[2017-09-23] MEDS: Aspirin TAB* 325 MG PO SCH (08:55)
[2017-09-23] MEDS: FLUoxetine CAP* 20 MG PO SCH (08:55)
[2017-09-23] MEDS ORDERED: diPHENhydraMINE IV* 50 MG/ML 1 ml VIAL (BENADRYL) IV PRN (11:17)
[2017-09-23] MEDS: Cetirizine* 10 MG TAB PO SCH (18:00)
[2017-09-23] MEDS: Magnesium Oxide TAB* 400 MG PO SCH (20:25)
[2017-09-24] MEDS: HYDROcodone/ACETAMIN 5-325 MG* 1 TAB PO PRN ×4 (00:03→19:07)
[2017-09-24 07:04] LABS: Hematocrit 30 % (35-47); Hemoglobin 10.3 g/dl (12.0-16.0)
--- NOTE | 2017-09-24 07:41 | PN ---
Progress Note - Progress Note Date of Service: 09/24/17 Note: 99 degrees and VS stable. More pain left hip and thigh than yesterday. Has done well with physical therapy. Awake, alert, cooperative and NAD at rest. Breathing easily. Maneuvers self to right lateral position for dressing change. Left hip surgery is clean and dry and some clotted blood distally on the surface. Redressed with betadine/telfa, gauze, and paper tape. Exercises done left ankle with active up and down movements. Hct. 30%, same as 09/23. Imp: Stable Plans: Continue rehab. for the total hip.
[2017-09-24] MEDS: Aspirin TAB* 325 MG PO SCH (08:54)
[2017-09-24] MEDS: Docusate CAP* 100 MG PO SCH ×2 (08:54→20:22)
[2017-09-24] MEDS: Ascorbic Acid TAB* 500 MG PO SCH (08:54)
[2017-09-24] MEDS: FLUoxetine CAP* 20 MG PO SCH (08:54)
--- NOTE | 2017-09-24 15:57 | PN ---
Progress Note - Progress Note Date of Service: 09/24/17 SOAP: Subjective: []Patient seen out of bed in chair. She reports no acute complaints and pain is well controlled. No chest pain, shortness of breath, fever, chills, leg numbness or nausea. Objective: [] Vital Signs Temp 98.5 F 09/24/17 11:39 Pulse 75 09/24/17 11:39 Resp 18 09/24/17 11:39 BP 102/45 09/24/17 11:39 Pulse Ox 95 09/24/17 11:39 Intake & Output 09/23/17 09/24/17 09/24/17 18:59 06:59 18:59 Intake Total 1644 560 Output Total 700 500 450 Balance 944 -500 110 Intake: IV Fluids 984 LR 984 Oral 660 560 Output: Urine 700 500 450 Laboratory Last Values Hgb 10.3 g/dl (12.0-16.0) L 09/24/17 06:16 Hct 30 % (35-47) L 09/24/17 06:16 Sodium 137 mmol/L (133-145) 09/23/17 05:39 Potassium 4.1 mmol/L (3.5-5.0) 09/23/17 05:39 Chloride 105 mmol/L (101-111) 09/23/17 05:39 Carbon Dioxide 29 mmol/L (22-32) 09/23/17 05:39 Anion Gap 3 mmol/L (2-11) 09/23/17 05:39 BUN 14 mg/dL (6-24) 09/23/17 05:39 Creatinine 0.62 mg/dL (0.51-0.95) 09/23/17 05:39 Est GFR ( Amer) 124.6 (>60) 09/23/17 05:39 Est GFR (Non-Af Amer) 96.9 (>60) 09/23/17 05:39 BUN/Creatinine Ratio 22.6 (8-20) H 09/23/17 05:39 Glucose 90 mg/dL (70-100) 09/23/17 05:39 Calcium 8.7 mg/dL (8.6-10.3) 09/23/17 05:39 General: Calm, cooperative, well appearing, no acute distress. LLE: Dressing changed by Dr. Altman this morning Bilateral lower extremities: Calves supple and nontender without erythema, edema , palpable cords. Negative tesfaye's sign. DF/PF intact. DP/PT pulses 2+ and symmetric Assessment: []s/p Left total hip arthroplasty 09/22/17, Dr. Altman Plan: []WBAT May shower, do not submerge Aspirin for DVT prophylaxis [place] is controlling pain d/c planned for 09/25
[2017-09-24] MEDS: Cetirizine* 10 MG TAB PO SCH (18:26)
[2017-09-24] MEDS: Magnesium Oxide TAB* 400 MG PO SCH (18:26)
[2017-09-25] MEDS: HYDROcodone/ACETAMIN 5-325 MG* 1 TAB PO PRN ×2 (01:52→04:59)
[2017-09-25 06:22] LABS: Hematocrit 30 % (35-47); Hemoglobin 10.4 g/dl (12.0-16.0)
--- NOTE | 2017-09-25 08:37 | PN ---
Progress Note - Progress Note Date of Service: 09/25/17 SOAP: Subjective: patient sitting in bed with minimal complaints of pain. Objective: Laboratory Last Values Hgb 10.4 g/dl (12.0-16.0) L 09/25/17 05:55 Hct 30 % (35-47) L 09/25/17 05:55 Sodium 137 mmol/L (133-145) 09/23/17 05:39 Potassium 4.1 mmol/L (3.5-5.0) 09/23/17 05:39 Chloride 105 mmol/L (101-111) 09/23/17 05:39 Carbon Dioxide 29 mmol/L (22-32) 09/23/17 05:39 Anion Gap 3 mmol/L (2-11) 09/23/17 05:39 BUN 14 mg/dL (6-24) 09/23/17 05:39 Creatinine 0.62 mg/dL (0.51-0.95) 09/23/17 05:39 Est GFR ( Amer) 124.6 (>60) 09/23/17 05:39 Est GFR (Non-Af Amer) 96.9 (>60) 09/23/17 05:39 BUN/Creatinine Ratio 22.6 (8-20) H 09/23/17 05:39 Glucose 90 mg/dL (70-100) 09/23/17 05:39 Calcium 8.7 mg/dL (8.6-10.3) 09/23/17 05:39 Vital Signs Temp Pulse Resp BP Pulse Ox 98.3 F 85 18 127/66 99 09/25/17 03:52 09/25/17 03:52 09/25/17 04:59 09/25/17 03:52 09/25/17 03:52 incision: c/d; dressing changed PE: NVI Assessment: s/p left MARY Plan: 1) PT/OT- WBAT 2) Home today with ASA 325mg daily for 4 weeks 3) F/U with Agapito in 2 weeks
[2017-09-25 08:55] VITALS: BP 105/65
[2017-09-25] MEDS: Aspirin TAB* 325 MG PO SCH (08:55)
[2017-09-25] MEDS: Docusate CAP* 100 MG PO SCH (08:55)
[2017-09-25] MEDS: FLUoxetine CAP* 20 MG PO SCH (08:56)
[2017-09-25] MEDS: Ascorbic Acid TAB* 500 MG PO SCH (09:15)
--- NOTE | 2017-09-25 11:16 | DS ---
AMENDED REPORT NOW INCLUDES COSIGNER DESIGNATION - ESIGNED BEFORE ADJUSTMENT DISCHARGE SUMMARY: DATE OF ADMISSION: 09/22/17 DATE OF DISCHARGE: 09/25/17 SURGEON: Doug Altman MD * (DICTATED BY JEY MCKOY) PRINCIPAL DIAGNOSIS: Severe end-stage osteoarthritis of the left hip. DISCHARGE DIAGNOSIS: Severe end-stage osteoarthritis of the left hip. HISTORY OF PRESENT ILLNESS: Ms. Ding is a 62-year-old female with complaints of left hip pain secondary to end-stage osteoarthritis. She failed conservative management and elected to proceed with a left total hip arthroplasty. HOSPITAL COURSE: Ms. Ding is a 62-year-old female. She was admitted electively to the hospital on 09/22/17 and underwent a left total hip arthroplasty. She tolerated the procedure well with no complications. Postoperatively, she was placed on aspirin for DVT prophylaxis. On postoperative day #1, her H and H was 10.3 and 30. On postop day #2, 10.3 and 30. On postoperative day #3, 10.4 and 30. Her vital signs remained stable at the time of discharge on 09/25/17. She was ambulating well, afebrile and her vital signs were stable. She was discharged to home. DISCHARGE MEDICATIONS: 1. Jal 5/325 one to two tabs every 4 to 6 hours as needed for pain. 2. Aspirin 325 daily for 4 weeks. 3. Vitamin C 500 mg daily. 4. Cetirizine 10 mg daily. 5. Colace 100 mg 2 to 3 tabs daily. 6. Prozac 40 mg daily. PHYSICAL EXAMINATION UPON DISCHARGE: She was afebrile. Vital signs were stable. Her incision was clean and dry. Her lower extremity muscle group strengths were intact at 5/5. She has intact sensation and is ambulating well with the aide of a walker. DISCHARGE INSTRUCTIONS: She was discharged home in stable condition. She is weightbearing as tolerated. She will take aspirin 325 mg daily for 4 weeks for DVT prophylaxis. She has a prescription for Jal 5/325 one to two tablets every 4 to 6 hours as needed for pain. She will follow up with Dr. Altman in two weeks. We have asked her to call our office with any questions or concerns prior to that visit. JEY MCKOY [id number]/[facility] #: [id number] CLARA
== END 2017-09-25 12:06 | disposition home health service (06) | DRG 301 ==
LOC: AA 06:03 → SSU 13:16
PROVIDERS: ADMIT Orthopaedic Surgery; ATTEND Orthopaedic Surgery
PROC: 0SRB02A Replacement of Left Hip Joint with Metal on Polyethylene Synthetic Substitute, Uncemented, Open Approach (ICD-10-PCS; principal; 2017-09-22 07:30)
DX: M16.12 Unilateral primary osteoarthritis, left hip (principal); Z96.641 Presence of right artificial hip joint; D62 Acute posthemorrhagic anemia; G43.909 Migraine, unspecified, not intractable, without status migrainosus; F32.9 Major depressive disorder, single episode, unspecified; F41.9 Anxiety disorder, unspecified; J30.2 Other seasonal allergic rhinitis; M25.752 Osteophyte, left hip; Z98.51 Tubal ligation status; Z88.8 Allergy status to other drugs, medicaments and biological substances; Z88.0 Allergy status to penicillin; Z88.5 Allergy status to narcotic agent; Z79.82 Long term (current) use of aspirin; Z83.3 Family history of diabetes mellitus; Z80.7 Family history of other malignant neoplasms of lymphoid, hematopoietic and related tissues
CPT/HCPCS: 36415; 72170; 80048; 85014; 85018; A9270-GY; C1713; C1776; J0690; J1100; J1200; J1240; J1885; J2250; J2270; J2300; J2704; J3010

== ENCOUNTER 2019-03-16 14:09 | Emergency (ER) | payer MEDICARE ==
[2019-03-16] MEDS ORDERED: NS 0.9% 1000 ML** 1,000 ML BOLUS ONE (16:05)
[2019-03-16] MEDS ORDERED: Albuterol 2.5 MG/3 ML NEB.SOL* (0.083%) INH ONE ×2 (16:05→17:19)
[2019-03-16] MEDS ORDERED: Ipratropium 0.5MG/2.5ML NEB* 0.5 MG/2.5 ML NEB.SOLN INH ONE (16:05)
[2019-03-16] MEDS ORDERED: methylPREDNISolone 125 MG* 2 ML VIAL IV ONE (16:06)
[2019-03-16] MEDS ORDERED: cefTRIAXone VIAL(*) 1,000 MG in NS 0.9% 50 ML* 50 ML IVPB ONE (16:06)
[2019-03-16] MEDS ORDERED: cefTRIAXone VIAL(*) 1,000 MG VIAL ONE (16:08)
--- NOTE | 2019-03-16 18:20 | UC ---
Respiratory Complaint HPI - HPI Summary HPI Summary: 64 yo female with one week hx of progressively worsening cough and wheezing now with nasal congestion and post nasal drip hx of bronchitis now using her inhaler without any relief no fever chest hurts when she cough was told she had a rash as a toddler on penicllin - History of Current Complaint Chief Complaint: UCRespiratory Stated Complaint: COUGH WHEEZING Time Seen by Provider: 03/16/19 15:31 Hx Obtained From: Patient Onset/Duration: Gradual Onset, Lasting Days Timing: Constant Severity Initially: Mild Severity Currently: Moderate Pain Intensity: 0 Pain Scale Used: 0-10 Numeric Character: Cough: Nonproductive Aggravating Factors: Allergens - ? Alleviating Factors: Nothing Associated Signs And Symptoms: Positive: Wheezing, Nasal Congestion Related History: Similar Episode/Dx as: - Bronchitis - Allergies/Home Medications Allergies/Adverse Reactions: Allergies Allergy/AdvReac Type Severity Reaction Status Date / Time oxycodone Allergy Difficulty Verified 03/16/19 15:02 Breathing Penicillins Allergy Unknown Verified 03/16/19 15:02 Reaction Details PMH/Surg Hx/FS Hx/Imm Hx Previously Healthy: Yes Respiratory History: Bronchitis, Pneumonia - X1 - Surgical History Surgical History: Yes Surgery Procedure, Year, and Place: tonsillectomy 1956. and tubal ligation 1980. Right hepatic lobectomy and cholecystectomy 1999. right knee arhtroscopy 2010. NASIR HIP REPLACEMENTS - Social History Alcohol Use: Rare Substance Use Type: None Smoking Status (MU): Never Smoked Tobacco - Immunization History Most Recent Influenza Vaccination: 2017 Most Recent Tetanus Shot: UTD Most Recent Pneumonia Vaccination: 2010 Review of Systems All Other Systems Reviewed And Are Negative: Yes Constitutional: Positive: Negative Skin: Positive: Negative Eyes: Positive: Negative ENT: Positive: Nasal Discharge Respiratory: Positive: Cough, Other - wheezing Cardiovascular: Positive: Negative Gastrointestinal: Positive: Negative Genitourinary: Positive: Negative Motor: Positive: Negative Musculoskeletal: Positive: Negative Neurological: Positive: Negative Psychological: Positive: Negative Physical Exam Triage Information Reviewed: Yes Appearance: Well-Appearing, No Pain Distress, Well-Nourished Vital Signs: Initial Vital Signs Temp 95.6 F 03/16/19 14:55 Pulse 92 03/16/19 14:55 Resp 18 03/16/19 14:55 BP 118/74 03/16/19 14:55 Pulse Ox 97 03/16/19 14:55 Vital Signs Reviewed: Yes Eyes: Positive: Conjunctiva Clear ENT: Positive: Hearing grossly normal, Nasal congestion, Uvula midline. Negative: Nasal drainage, TMs normal, TM bulging, TM dull, TM red, Tonsillar swelling, Tonsillar exudate, Trismus, Muffled voice, Hoarse voice, Dental tenderness, Sinus tenderness Neck: Positive: Supple, Nontender, No Lymphadenopathy Respiratory: Positive: No respiratory distress, No accessory muscle use, Crackles - Right base, Wheezing, Other: - bronchospastic cough Cardiovascular: Positive: RRR, No Murmur Musculoskeletal: Positive: ROM Intact, No Edema Neurological: Positive: Alert Psychological Exam: Normal Skin Exam: Normal Diagnostics - Radiology No standard instances Radiology Interpretation Completed By: Radiologist - stigmata of copd - EKG Cardiac Rate: NL Cardiac Rhythm: Sinus: Normal Ectopy: None ST Segment: Normal Re-Evaluation - Re-Evaluation First Eval Re-Evaluation Time: 17:10 Change: Worse - feels more dyspneic/shest tighter PFR 250 Third Eval Re-Evaluation Time: 18:10 Change: Worse - feels more dyspneic, PEFR 150 Respiratory Course/Dx - Course Course Of Treatment: worsening despite treatment still with pronounced RLL rales now tachypeic Advise ED RN re transfer No provider available for report - Differential Dx/Diagnosis Provider Diagnosis: Dyspnea Discharge - Sign-Out/Discharge Documenting (check all that apply): Patient Departure All imaging exams completed and their final reports reviewed: No Studies - Discharge Plan Condition: Stable Disposition: TRANS HIGHER L OF CARE FAC Referrals: Steffany Head MD [Primary Care Provider] - - Billing Disposition and Condition Condition: STABLE Disposition: Trans Higher Lvl of Care Fac
[2019-03-16 18:30] VITALS: BP 156/84
== END 2019-03-16 18:35 | disposition short-term general hospital (02) ==
LOC: UCEAST 14:09
DX: R06.00 Dyspnea, unspecified (principal); R05 Cough; R09.81 Nasal congestion; Z88.5 Allergy status to narcotic agent; Z88.0 Allergy status to penicillin
CPT/HCPCS: 71046; 93005; 96360; 96365; 99213; G0463; J0696; J2930

== ENCOUNTER 2019-03-16 18:49 | Inpatient (IN) | payer MEDICARE ==
[2019-03-16] MEDS ORDERED: NS 0.9% 1000 ML** 1,000 ML IV ONE (19:24)
--- NOTE | 2019-03-16 19:24 | ED ---
Respiratory - HPI Summary HPI Summary: Pt is a 64 y/o female brought in by EMS who presents to the ED c/o SOB. 1 week ago she began to have dry cough, SOB, CP with cough, and wheezing. Yesterday she then began to have congestion, chills, and post-nasal drip. Pt denies any fever. She was sent here from the for further evaluation. At the an EKG was normal and a CXR revealed stigmata of COPD. Pt denies any hx of COPD. She was given 125 mg Solumedrol and two albuterol treatments, which made her SOB worse. Pt was also given IV Rocephin. She has been using Robitussin and her inhaler without relief. As per medical records, PMHx asthma, allergies, bronchitis, PNA. Pt denies any smoking. - History of Current Complaint Chief Complaint: EDShortnessOfBreath Stated Complaint: DIFFICULTY BREATHING PER EMS Time Seen by Provider: 03/16/19 19:17 Hx Obtained From: Patient, EMS, Medical Records Onset/Duration: Gradual Onset, Lasting Weeks - 1, Worse Since Timing: Constant Current Severity: None Pain Intensity: 0 Character: Wheezing, Cough (Nonproductive), Dyspnea at Rest Sputum Amount: None Associated Signs and Symptoms: SOB, Wheezing, Chest Pain with Cough, Chills, Nasal Congestion Related History: Similar Episode/Dx as - hx bronchitis, PNA - Allergy/Home Medications Allergies/Adverse Reactions: Allergies Allergy/AdvReac Type Severity Reaction Status Date / Time oxycodone Allergy Difficulty Verified 03/16/19 15:02 Breathing Penicillins Allergy Unknown Verified 03/16/19 15:02 Reaction Details PMH/Surg Hx/FS Hx/Imm Hx Endocrine/Hematology History: Denies: Hx Diabetes Cardiovascular History: Denies: Hx Hypertension, Hx Pacemaker/ICD Respiratory History: Reports: Hx Asthma - multiple pneumonias, Other Respiratory Problems/Disorders - pneumonia x3, bronchitis x1 GI History: Reports: Other GI Disorders - donated portion of liver 1999 History: Denies: Hx Renal Disease Musculoskeletal History: Reports: Hx Arthritis - bilateral hips, neck Denies: Hx Osteoporosis Sensory History: Reports: Hx Contacts or Glasses - glasses Denies: Hx Hearing Aid Opthamlomology History: Reports: Hx Contacts or Glasses - glasses Neurological History: Reports: Hx Migraine Psychiatric History: Reports: Hx Anxiety, Hx Depression Denies: Hx Panic Disorder - Cancer History Hx Chemotherapy: No Hx Radiation Therapy: No - Surgical History Surgery Procedure, Year, and Place: tonsillectomy 1956. and tubal ligation 1980. Right hepatic lobectomy and cholecystectomy 1999. right knee arhtroscopy 2010. NASIR HIP REPLACEMENTS Hx Anesthesia Reactions: No Infectious Disease History: No Infectious Disease History: Denies: Traveled Outside the [place] in Last 30 Days - Family History Known Family History: Positive: Other - [place] - Social History Alcohol Use: Rare Hx Substance Use: No Substance Use Type: Reports: None Hx Tobacco Use: No Smoking Status (MU): Never Smoked Tobacco Review of Systems Positive: Chills. Negative: Fever Positive: Other - congestion, post-nasal drip Positive: Chest Pain - with cough Positive: Shortness Of Breath, Cough, Other - wheezing All Other Systems Reviewed And Are Negative: Yes Physical Exam - Summary Physical Exam Summary: Appearance: well appearing, no pain distress Skin: warm, dry, reflects adequate perfusion Head/face: normal Eyes: EOMI, JOHANN ENT: mucous membranes moist Neck: supple, non-tender Respiratory: diffuse wheezes, breath sounds present, labored breathing Cardiovascular: RRR, pulses symmetrical Abdomen: non-tender, soft Bowel Sounds: present Musculoskeletal: normal, strength/ROM intact Neuro: normal, sensory motor intact, A&Ox3 Triage Information Reviewed: Yes Vital Signs On Initial Exam: Initial Vitals Temp Pulse Resp BP Pulse Ox 98.4 F 88 16 148/92 96 03/16/19 19:01 03/16/19 19:01 03/16/19 19:01 03/16/19 19:01 03/16/19 19:01 Vital Signs Reviewed: Yes Diagnostics - Vital Signs Vital Signs Temp Pulse Resp BP Pulse Ox 03/16/19 19:01 98.4 F 88 16 148/92 96 - Laboratory Result Diagrams: 03/16/19 19:57 03/16/19 19:58 Lab Statement: Any lab studies that have been ordered have been reviewed, and results considered in the medical decision making process. - EKG 20:55 Cardiac Rate: NL - 83 bpm EKG Rhythm: Sinus Rhythm ST Segment: Normal Summary of EKG Findings: Nl axis, prolonged QT interval 506 Re-Evaluation - Re-Evaluation First Eval Re-Evaluation Time: 20:04 Change: Unchanged Comment: Pt is currently having the breathing treatment and is slightly more comfortable. Disposition - Course Course Of Treatment: Patient presents from urgent care by ambulance with respiratory distress. She actually felt worse after breathing treatments there. She has diffuse wheezes and increased respiratory work. She was started on high velocity nasal insufflation CPAP by Vapotherm with immediate improvement. She continued to get breathing treatments and also received IV fluids, antibiotics and IV magnesium. The hospitalist was contacted and will admit. She will be transitioned off the Vapotherm prior to moving to the floor. She did receive IV antibiotics in the urgent care prior to being brought here. There is no infiltrate on x-ray. - Differential Dx - Cardiopulmonary Differential Diagnoses - Cardiopulmonary: Other - Asthma, COPD, pneumonia, vocal cord dysfunction, influenza - Diagnoses Provider Diagnoses: COPD exacerbation, Lactic acidosis - Physician Notifications Discussed Care Of Patient With: Maurice Menchaca Time Discussed With Above Provider: 20:53 Instructed by Provider To: Admit As Inpatient - Critical Care Time Critical Care Time: 30-74 min - CCT is EXCLUSIVE of separately billable procedures. Discharge - Sign-Out/Discharge Documenting (check all that apply): Patient Departure - Admit Patient Received Moderate/Deep Sedation with Procedure: No - Discharge Plan Condition: Fair Disposition: ADMITTED TO [facility] - Billing Disposition and Condition Condition: FAIR Disposition: Admitted to [facility] - Attestation Statements Document Initiated by Fernanda: Yes Documenting Scribe: Elin Harrington Provider For Whom Abdielibe is Documenting (Include Credential): Jono Wyman MD Scribe Attestation: Elin Gill, scribed for Jono Wyman MD on 03/17/19 at 0626. Scribe Documentation Reviewed: Yes Provider Attestation: The documentation as recorded by the Elin cartagena accurately reflects the service I personally performed and the decisions made by me, Jono Wyman MD Status of Scribe Document: Viewed
[2019-03-16] MEDS ORDERED: Levalbuterol 1.25MG/0.5ML NEB INH ONE (19:25)
[2019-03-16] MEDS ORDERED: Magnesium Sulfate 1 GM IV* 1 GM/100 ML BAG IV ONE (19:25)
[2019-03-16] MEDS ORDERED: Ipratropium 0.5MG/2.5ML NEB* 0.5 MG/2.5 ML NEB.SOLN INH ONE (19:25)
[2019-03-16 19:49] LABS: Influenza A Molecular NEGATIVE (Negative); Influenza B Molecular NEGATIVE (Negative)
[2019-03-16 20:14] LABS: ABS Basophils 0 10^3/ul (0-0.2); ABS Eosinophils 0 10^3/ul (0-0.6); ABS Lymphocytes 0.4 10^3/ul (1.0-4.8); ABS Monocytes 0.2 10^3/ul (0-0.8); ABS Neutrophils 6.2 10^3/ul (1.5-7.7); ABS Nucleated RBC 0 10^3/ul; Eosinophil % 0 %; Hematocrit 47 % (35-47); Hemoglobin 15.8 g/dL (12.0-16.0); Lymphocyte % 5.9 %; Mean Corpuscular HGB Conc 34 g/dL (31-36); Mean Corpuscular Hemoglobin 30 pg (27-31); Mean Corpuscular Volume 89 fL (80-97); Nucleated Red Blood Cells % 0; Platelet Count 198 10^3/uL (150-450); Red Blood Count 5.21 10^6 /uL (3.70-4.87); Red Cell Distribution Width 14 % (10.5-15); White Blood Count 6.8 10^3/uL (3.5-10.8)
[2019-03-16 20:31] LABS: Albumin 4.4 g/dL (3.2-5.2); Albumin/Globulin Ratio 1.4 (1-3); BUN/Creatinine Ratio 21.3 (8-20); Calcium 9.2 mg/dL (8.6-10.3); EGFR African American 93.5 (>60); EGFR Non-African American 77.3 (>60); Globulin 3.1 g/dL (2-4); Potassium 3.6 mmol/L (3.5-5.0); Total Bilirubin 0.4 mg/dL (0.2-1.0); Total Protein 7.5 g/dL (6.4-8.9)
[2019-03-16] MEDS ORDERED: Azithromycin 500 mg/250 ml NS 500 MG/250 ML BAG IVPB ONE (20:37)
[2019-03-16] MEDS ORDERED: Azithromycin 500 mg/250 mL NS IVPB ONE (21:00)
[2019-03-16] MEDS ORDERED: Enoxaparin(*) 40 MG/0.4 ML SYR SUBCUT SCH (23:45)
[2019-03-16] MEDS ORDERED: methylPREDNISolone 125 MG* 2 ML VIAL IV ONE (23:59)
[2019-03-16] MEDS ORDERED: Acetaminophen TAB* 325 MG PO PRN (23:59)
[2019-03-16] MEDS ORDERED: Ipratropium 0.5MG/2.5ML NEB* 0.5 MG/2.5 ML NEB.SOLN INH PRN (23:59)
[2019-03-17] MEDS ORDERED: LORazepam TAB(*) 1 MG PO PRN (00:19)
--- NOTE | 2019-03-17 00:27 | ADMNOTE ---
Subjective Date of Service: 03/16/19 Interval History: HISTORY and PHYSICAL PCP: Adilene CC: dyspnea HPI: Patient is a 64 year old woman with no chronic pulmonary issues who developed fatigue, weakness about 1 week prior to admission. She then developed dyspnea about 4 days ago, which progressed notably, leading her to go to urgent care today. She has a constant non-productive cough, denies fever. She has some anterior chest pain that feels related to dyspnea. She does admit to chest pressure. She presented to urgent care, had a chest X-ray, was given solumedrol 125 mg IV. and transferred to ER. She had tremors after albuterol nebulizer in urgent care, that caused anxiety and more dyspnea. Family History: Findings - Mother , had diabetes, MGF also of complications of diabetes, Mother, father, brother and aunt had lymphoma Social History: Findings - Retired nurse, , 4 children, never smoker, rare alcohol, no drugs Past Medical History: Findings - osteoarthritis, anxiety, migraine headache; PSH ; partial liver donor, bilateral hip replacement, X1 Review of Systems - Measurements Intake and Output: Intake and Output Last 24 Hours 03/14/19 03/15/19 03/16/19 03/17/19 06:59 06:59 06:59 06:59 Intake Total 1100 Balance 1100 Weight 74.843 kg Intake: IV Fluids 1100 - Review of Systems Constitutional Symptoms: Positive: Weakness Negative: Fever Dermatology: Positive: Normal HEENT: Positive: Normal Eyes: Positive: Normal Thyroid: Positive: Normal Pulmonary: Positive: Cough, Respiratory Distress, Shortness of Breath Negative: Sputum, COPD, Asthma Cardiology: Positive: Chest Pain Negative: Palpitations Gastroenterology: Positive: Normal Genital - Urinary: Positive: Normal Genitourinay - Female: Positive: Menopause Musculoskeletal: Positive: Arthritis Endocrinology: Positive: Normal Hematologic/Lymphatic: Negative: Anemia Neurology: Positive: Migraines Psychiatry: Positive: Anxiety Allergic/Immunologic: Positive: Hx Seasonal Objective Active Medications: Home Medications: See Medication Reconciliation Sheet Vital Signs - 8 hr 03/16/19 03/16/19 03/16/19 21:46 22:00 22:16 Temperature Pulse Rate 84 87 83 Respiratory 17 15 20 Rate Blood Pressure 152/77 145/76 (mmHg) O2 Sat by Pulse 96 94 92 Oximetry 03/16/19 03/16/19 03/16/19 22:46 23:00 23:16 Temperature Pulse Rate 80 84 82 Respiratory 18 22 16 Rate Blood Pressure 146/70 144/69 (mmHg) O2 Sat by Pulse 95 96 95 Oximetry 03/16/19 03/17/19 23:46 00:00 Temperature Pulse Rate 81 82 Respiratory 12 15 Rate Blood Pressure 141/72 (mmHg) O2 Sat by Pulse 91 95 Oximetry Oxygen Devices in Use Now: High Flow Heated Nasal Cannula Appearance: alert, no resp distress Eyes: No Scleral Icterus Ears/Nose/Mouth/Throat: Clear Oropharnyx Neck: NL Appearance and Movements; NL JVP Respiratory: Symmetrical Chest Expansion and Respiratory Effort, - - ronchi RT base Cardiovascular: NL Sounds; No Murmurs; No JVD, RRR Abdominal: NL Sounds; No Tenderness; No Distention, No Hepatosplenomegaly Lymphatic: No Cervical Adenopathy Extremities: No Edema Skin: No Rash or Ulcers Neurological: Alert and Oriented x 3 Lines/Tubes/Other Access: Clean, Dry and Intact Peripheral IV Nutrition: Taking PO's Result Diagrams: 03/16/19 19:57 03/16/19 19:58 Diagnostic Imaging: CXR: no infiltrates, hyperinflation EKG Data: NSR, rate 83, QT prolonged, no ST/T-wave deviation Assess/Plan/Problems-Billing Assessment: 64 year old woman with acute dyspnea, differential includes bronchitis, pneumonia, pulmonary embolism, cardiac disease - Patient Problems (1) Dyspnea and respiratory abnormality Current Visit: Yes Status: Acute Priority: High Code(s): R06.00 - DYSPNEA , UNSPECIFIED; R06.89 - OTHER ABNORMALITIES OF BREATHING SNOMED Code(s): 085527008 Comment: -Will have d-dimer drawn now, with CTA chest if elevated, as PE is in differential -Admit to medical service, treat empirically for pneumonia and COPD exacerbation with nebulizers and oral prednisone -Azithromycin started in ER, will add ceftriaxone if pneumonia confirmed on CT chest. -Venous blood gas consistent with respiratory alkalosis, with some metabolic compensation -Dyspnea could be due to cardiac ischemia, will monitor on telemetry, and follow troponins (2) Lactic acid blood increased Current Visit: Yes Status: Acute Priority: Medium Code(s): R79.89 - OTHER SPECIFIED ABNORMAL FINDINGS OF BLOOD CHEMISTRY SNOMED Code(s): 1061456 Comment: -Patient not currently septic, has tachypnea, no other criteria -Will repeat lactate post 3 hours (3) DVT prophylaxis Current Visit: Yes Status: Acute Priority: Low Code(s): AKN8988 - SNOMED Code(s): 529376268 Comment: -Moderate risk -SC lovenox Status and Disposition: inpatient
[2019-03-17 00:57] LABS: Activated Partial Thrombo Time 28.1 seconds (26.0-36.3); INR 1.11 (0.82-1.09)
[2019-03-17] MEDS ORDERED: Iohexol 350* (CONTRAST) 500 ML MDV IV ONE (02:12)
[2019-03-17] MEDS: Enoxaparin(*) 40 MG/0.4 ML SYR SUBCUT SCH ×2 (03:05→21:36)
[2019-03-17 07:21] LABS: Troponin I 0.01 ng/mL (<0.04)
[2019-03-17 07:26] LABS: Calcium 9.1 mg/dL (8.6-10.3); EGFR African American 131.1 (>60); EGFR Non-African American 108.3 (>60); Potassium 4.2 mmol/L (3.5-5.0)
[2019-03-17] MEDS: predniSONE TAB* 50 MG PO SCH (09:11)
[2019-03-17] MEDS: FLUoxetine CAP* 20 MG PO SCH (09:11)
[2019-03-17] MEDS: cefTRIAXone VIAL(*) 1,000 MG in NS 0.9% 50 ML* 50 ML IVPB SCH (09:12)
[2019-03-17 11:47] LABS: C Reactive Protein 41.36 mg/L (<8.01); Magnesium 2.1 mg/dL (1.9-2.7)
[2019-03-17] MEDS ORDERED: Azithromycin 500 mg/250 ml NS 500 MG/250 ML BAG IVPB SCH (17:00)
[2019-03-17] MEDS: Cholecalciferol TAB* 1000 UNITS PO SCH (17:46)
[2019-03-17] MEDS: traZODone TAB* 50 MG TAB PO PRN (22:41)
[2019-03-18 06:22] LABS: ABS Lymphocytes 1.2 10^3/ul (1.0-4.8); ABS Monocytes 0.8 10^3/ul (0-0.8); ABS Neutrophils 6.4 10^3/ul (1.5-7.7); Eosinophil % 0.2 %; Hematocrit 46 % (35-47); Hemoglobin 15.4 g/dL (12.0-16.0); Lymphocyte % 14.6 %; Mean Corpuscular HGB Conc 33 g/dL (31-36); Mean Corpuscular Hemoglobin 30 pg (27-31); Mean Corpuscular Volume 90 fL (80-97); Platelet Count 197 10^3/uL (150-450); Red Blood Count 5.16 10^6 /uL (3.70-4.87); Red Cell Distribution Width 15 % (10.5-15); White Blood Count 8.5 10^3/uL (3.5-10.8)
[2019-03-18 06:27] LABS: ALT 18 U/L (7-52); Albumin 3.7 g/dL (3.2-5.2); Albumin/Globulin Ratio 1.4 (1-3); Alkaline Phosphatase 32 U/L (34-104); BUN/Creatinine Ratio 32.4 (8-20); Blood Urea Nitrogen 22 mg/dL (6-24); C Reactive Protein 17.94 mg/L (<8.01); CO2 Carbon Dioxide 22 mmol/L (22-32); Calcium 9.2 mg/dL (8.6-10.3); Chloride 111 mmol/L (101-111); EGFR African American 104.7 (>60); EGFR Non-African American 86.6 (>60); Globulin 2.7 g/dL (2-4); Glucose 85 mg/dL (70-100); Sodium 140 mmol/L (135-145); Total Protein 6.4 g/dL (6.4-8.9)
[2019-03-18 07:33] LABS: Urine Appearance Clear; Urine Bilirubin Negative (Negative); Urine Blood Negative (Negative); Urine Color Yellow; Urine Glucose Negative (Negative); Urine Ketones Negative (Negative); Urine Nitrite Negative (Negative); Urine Protein Negative (Negative); Urine Specific Gravity 1.014 (1.010-1.030); Urine Urobilinogen Negative (Negative)
[2019-03-18] MEDS: Levalbuterol 1.25MG/0.5ML NEB INH PRN ×2 (08:29→14:26)
[2019-03-18 08:40] LABS: Anion Gap 7 mmol/L (2-11)
[2019-03-18] MEDS: FLUoxetine CAP* 20 MG PO SCH (08:47)
[2019-03-18] MEDS: cefTRIAXone VIAL(*) 1,000 MG in NS 0.9% 50 ML* 50 ML IVPB SCH (08:48)
[2019-03-18] MEDS: predniSONE TAB* 50 MG PO SCH (08:48)
[2019-03-18] MEDS ORDERED: DOXYCYCLINE HYCLATE 50 MG CAP (NF) PO SCH (10:00)
[2019-03-18 10:05] LABS: Potassium Redraw 3.6 mmol/L (3.5-5.0)
[2019-03-18] MEDS: DOXYcycline CAP(*) 100 MG PO SCH ×2 (11:48→20:02)
[2019-03-18] MEDS: Fluticasone NASAL SPRAY 50MCG* 16 gm SPRAY BTL BOTH NARES SCH (11:48)
[2019-03-18] MEDS: Cetirizine* 10 MG TAB PO SCH (11:48)
[2019-03-18] MEDS: Cholecalciferol TAB* 1000 UNITS PO SCH (17:12)
[2019-03-18] MEDS: Enoxaparin(*) 40 MG/0.4 ML SYR SUBCUT SCH (20:00)
[2019-03-18] MEDS: guaiFENesin ER TAB 600 MG PO SCH (21:06)
[2019-03-18] MEDS: traZODone TAB* 50 MG TAB PO PRN (22:04)
[2019-03-19] MEDS: cefTRIAXone VIAL(*) 1,000 MG in NS 0.9% 50 ML* 50 ML IVPB SCH (07:26)
[2019-03-19 08:10] VITALS: BP 150/74
--- NOTE | 2019-03-19 08:45 | PN ---
Subjective - Subjective Reason for Note: Discharge Note History: Discharge summary She is feeling much better today. She has an irritating, non-productive cough. She has had no fevers, sweats or chills. She would like to go home Active Problems: Active Problems Dyspnea and respiratory abnormality (Acute) R06.00, R06.89 -Will have d-dimer drawn now, with CTA chest if elevated, as PE is in differential -Admit to medical service, treat empirically for pneumonia and COPD exacerbation with nebulizers and oral prednisone -Azithromycin started in ER, will add ceftriaxone if pneumonia confirmed on CT chest. -Venous blood gas consistent with respiratory alkalosis, with some metabolic compensation - Dyspnea could be due to cardiac ischemia, will monitor on telemetry, and follow troponins Elevated BP without diagnosis of hypertension (Acute) R03.0 Lactic acid blood increased (Acute) R79.89 -Patient not currently septic, has tachypnea, no other criteria -Will repeat lactate post 3 hours Right lower lobe pneumonia (Acute) J18.1 DVT prophylaxis (Chronic) [id number] -Moderate risk -SC lovenox Current Medications: Current Medications Acetaminophen (Tylenol Tab*) 650 mg PO Q4H PRN PRN Reason: FEVER/HEADACHE Cetirizine HCl (Zyrtec*) 10 mg PO DAILY [facility] Last Admin: 03/18/19 11:48 Dose: 10 mg Cholecalciferol (Vitamin D Tab*) 1,000 units PO QPM [facility] Last Admin: 03/18/19 17:12 Dose: 1,000 units Doxycycline Hyclate (Vibramycin Cap(*)) 100 mg PO BID [facility] Last Admin: 03/18/19 20:02 Dose: 100 mg Enoxaparin Sodium (Lovenox(*)) 40 mg SUBCUT BEDTIME [facility] Last Admin: 03/18/19 20:00 Dose: 40 mg Fluoxetine HCl (Prozac Cap*) 40 mg PO QAM [facility] Last Admin: 03/18/19 08:47 Dose: 40 mg Fluticasone Propionate (Flonase Nasal [place] 50mcg*) 2 spray BOTH NARES DAILY [facility] Last Admin: 03/18/19 11:48 Dose: 2 spray Guaifenesin (Mucinex*) 1,200 mg PO BID [facility] Last Admin: 03/18/19 21:06 Dose: 1,200 mg Ceftriaxone Sodium 1,000 mg/ (Sodium Chloride) 50 mls @ 200 mls/hr IVPB Q24H [facility] Last Admin: 03/19/19 07:26 Dose: 200 mls/hr Ipratropium [place] (Atrovent 0.5 Mg Neb.Anabella*) 0.5 mg INH Q6H PRN PRN Reason: SOB/WHEEZING Levalbuterol HCl (Xopenex 1.25 Mg/0.5 Ml Neb.Anabella*) 1.25 mg INH Q6H PRN PRN Reason: SOB/WHEEZING Last Admin: 03/18/19 14:26 Dose: 1.25 mg Lorazepam (Ativan Tab(*)) 1 mg PO Q4H PRN PRN Reason: ANXIETY Last Admin: 03/17/19 03:28 Dose: 1 mg Prednisone (Deltasone Tab*) 50 mg PO DAILY [facility] Last Admin: 03/18/19 08:48 Dose: 50 mg Trazodone HCl (Desyrel Tab*) 100 mg PO BEDTIME PRN PRN Reason: INSOMNIA Last Admin: 03/18/19 22:04 Dose: 50 mg Home Medications: Home Medications Medication Instructions Recorded Confirmed Type Cholecalciferol (Vitamin D3) 1,000 unit PO QPM 11/28/16 03/17/19 History [Vitamin D3] Fluoxetine HCl [Prozac] 40 mg PO QAM 11/28/16 03/17/19 History Ibuprofen [Ibuprofen 200 MG] 600 mg PO BID 11/28/16 03/16/19 History Magnesium 250 mg PO QPM 11/28/16 03/17/19 History traZODone TAB* [Desyrel TAB*] 50 - 100 mg PO BEDTIME PRN 11/28/16 03/17/19 History Allergies: Allergies Allergy/AdvReac Type Severity Reaction Status Date / Time oxycodone Allergy Difficulty Verified 03/16/19 15:02 Breathing Penicillins Allergy Unknown Verified 03/16/19 15:02 Reaction Details Objective - Vital Signs Vital Signs: Vital Signs 03/18/19 03/18/19 03/18/19 11:03 14:29 15:08 Temperature 97.6 F Pulse Rate 69 69 81 Respiratory 14 16 Rate Blood Pressure 146/65 (mmHg) O2 Sat by Pulse 94 97 94 Oximetry 03/18/19 03/19/19 03/19/19 20:00 00:09 07:46 Temperature 97.2 F 97.7 F Pulse Rate 78 56 Respiratory 18 22 18 Rate Blood Pressure 132/70 150/74 (mmHg) O2 Sat by Pulse 97 93 Oximetry 03/19/19 08:10 Temperature 97.7 F Pulse Rate 56 Respiratory 18 Rate Blood Pressure 150/74 (mmHg) O2 Sat by Pulse 93 Oximetry - Intake and Output Intake and Output: Intake & Output 03/16/19 03/17/19 03/18/19 03/19/19 11:59 11:59 11:59 11:59 Intake Total 1100 1370 1865 Output Total 200 Balance 1100 1370 1665 Weight 171 lb 12.8 oz Intake: IV Fluids 1100 50 55 rocefin 50 55 Oral 0 1320 1810 Output: Urine 200 Other: Estimated Void Medium # Bowel Movements 0 # Voids 2 2 ADLs: Meal Record Start: 03/17/19 01: 25 Freq: DAILY@0900,1400,1800 Status: Active Protocol: Created 03/17/19 01:25 System (Rec: 03/17/19 01:25 System [id number]) Document 03/17/19 09:00 [id number] (Rec: 03/17/19 12:30 [id number] TELE-C01) Document 03/17/19 14:00 [id number] (Rec: 03/17/19 14:28 [id number] TELE-C13) Document 03/17/19 18:00 [id number] (Rec: 03/17/19 18:07 [id number] TELE-C01) Document 03/18/19 09:00 [id number] (Rec: 03/18/19 10:25 [id number] TELE-C01) Document 03/18/19 14:00 [id number] (Rec: 03/18/19 14:40 [id number] TELE-C01) Document 03/18/19 18:00 [id number] (Rec: 03/18/19 18:14 [id number] TELE-C13) Intake and Output Start: 03/16/19 19: 06 Freq: Status: Active Protocol: Created 03/16/19 19:06 System (Rec: 03/16/19 19:06 System [id number]) Intake and Output Start: 03/17/19 01: 25 Freq: DAILY@0600,1400,2200 Status: Active Protocol: Created 03/17/19 01:25 System (Rec: 03/17/19 01:25 System [id number]) Document 03/17/19 06:00 [id number] (Rec: 03/17/19 06:41 [id number] TELE-C32) Document 03/17/19 14:00 [id number] (Rec: 03/17/19 14:28 [id number] TELE-C13) Document 03/17/19 21:23 [id number] (Rec: 03/17/19 21:23 [id number] TELE-C05) Document 03/18/19 05:21 [id number] (Rec: 03/18/19 05:21 [id number] TELE-C01) Document 03/18/19 14:00 [id number] (Rec: 03/18/19 14:40 [id number] TELE-C01) Document 03/18/19 22:00 [id number] (Rec: 03/18/19 22:06 [id number] TELE-C09) Document 03/19/19 06:00 [id number] (Rec: 03/19/19 06:06 [id number] TELE-C03) - Physical Exam General Physical Exam Comment: Warm and well perfused General: No Cyanosis, No Anemia, No Jaundice, No Clubbing Lungs and Chest: Yes: Chest Expansion Full, Chest Expansion Symetrica, Percussion Note Resonant, Vessicular Breath Sounds, Crackles - a few in the right base. No: Wheezes, Respiratory Distress, Use of Accessory Muscles Heart Rate and Rhythm: Regular Additional Cardiovascular: Yes: Normal Heart Sounds. No: Heart Murmur, Pedal Edema Abdominal Exam: Yes: Soft, Bowel Sounds Present. No: Distention, Abdominal Tenderness Results - Results Lab Results: Laboratory Results - last 24 hr 03/18/19 03/18/19 05:52 09:21 Potassium TNP 3.6 Anion Gap 7 AST TNP 25 Assessment - Problem List Assessment: Patient Problems Dyspnea and respiratory abnormality (Acute) Elevated BP without diagnosis of hypertension (Acute) Lactic acid blood increased (Acute) Right lower lobe pneumonia (Acute) DVT prophylaxis (Chronic) Status post total hip replacement, right (Acute) Plan: Dyspnea and respiratory abnormality (Acute)Lactic acid blood increased (Acute) Right lower lobe pneumonia (Acute) She is recovering well. Her %neutrophils, CRP are improved. She is able to walk normally without dyspnea. I think this is likely an atypical pneumonia. She will continue doxycyline and cefdinir as an out patient. She will taper the prednisone Elevated BP without diagnosis of hypertension (Acute) This is likely due to IVF with NS and also prednisone. Reassured. DVT prophylaxis (Chronic) Status post total hip replacement, right (Acute) She is ready for discharge
[2019-03-19] MEDS ORDERED: Cefdinir cap* 300 MG CAP PO SCH (09:00)
[2019-03-19] MEDS ORDERED: predniSONE TAB* 5 MG PO SCH (09:00)
[2019-03-19] MEDS: Fluticasone NASAL SPRAY 50MCG* 16 gm SPRAY BTL BOTH NARES SCH (09:59)
[2019-03-19] MEDS: DOXYcycline CAP(*) 100 MG PO SCH (10:01)
[2019-03-19] MEDS: guaiFENesin ER TAB 600 MG PO SCH (10:02)
[2019-03-19] MEDS: FLUoxetine CAP* 20 MG PO SCH (10:02)
[2019-03-19] MEDS: Cetirizine* 10 MG TAB PO SCH (10:02)
--- NOTE | 2019-03-19 11:26 | DS ---
CC: Dr. Steffany Head DISCHARGE SUMMARY: DATE OF ADMISSION: 03/17/19 DATE OF DISCHARGE: 03/19/19 DISCHARGE DIAGNOSES: 1. Right lower lobe pneumonia. 2. Dyspnea. 3. Lactic acid level increased. COMORBIDITIES: Blood pressure mildly elevated, no history of hypertension. SECONDARY DIAGNOSES: 1. History of bilateral total hip arthroplasties. 2. Anxiety. 3. Migraine. 4. Osteoarthritis. 5. Partial liver donor. 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 Her presentation is documented in detail in Dr. Maurice Menchaca's admitting history and physical. In [facility], she had a week history of fatigue and weakness, developed dyspnea 4 days prior to admission. She had a constant nonproductive cough, no fever, some cough-related chest pain. INITIAL EXAMINATION: Temperature 98.4, heart rate 88, respirations 16, oxygen saturation 96%, blood pressure 148/92. She had a symmetrical chest expansion. She had rhonchi at the right base. Otherwi se, nothing focal found. Chest x-ray showed hyperinflation, no infiltrates. Initial differential diagnosis: Bronchitis, pneum onia, pulmonary embolism, and cardiac disease. She was admitted for inpatient management. INVESTIGATIONS: 03/16/19 CBC: White count 6.8, hemoglobin 15.8, hematocrit 47, platelets 198, perce nt neutrophils 90.7. VBGs, pH 7.53, pCO2 of 24, pO2 of 45. Chemistry was within normal limits. CO2 was 21, anion gap 15, glucose 179. BNP 21. Normal LFTs. Lactic acid 5.6. Urinalysis negative. Influenza test negative. Chest x-ray showe d right lower lobe infiltrate, no PE, old granulomatous disease, pleural parenchymal changes in the a pices. HOSPITAL COURSE: She was managed with oxygen therapy, IV fluids, ceftriaxone IV, and doxycycline p.o ., oral prednisone. On the penultimate day in the hospital, she did not feel well enough for dischar ge; however, responded over the following 24 hours to treatment. On the day of discharge, she continues to cough, she has a little chest pain from coughing. She is n ot dyspneic. She is able to walk without any problems. She thinks that she can do all activities of daily living and is ready to go home. She has had no fevers, sweats, or chills. She has had no oth er chest pain. Her appetite is normal. Her bowel movements are normal. She has had no antibiotic r eaction. Urination is normal. PHYSICAL EXAMINATION ON THE DAY OF DISCHARGE: Vital Signs: Temperature 97.7, pulse 56, respirations 18, oxygen saturation on room air 93%, blood pressure 150/74. She has no cyanosis, anemia, jaundice , clubbing, or lymphadenopathy. Cardiovascular System: Pulse regular, normal character and volume. Venous pressure not elevated. Heart sounds normal. No added sounds. No murmurs. No pedal edema. Respiratory System: Chest expansion full and symmetrical, percussion not resonant, breath sounds are vesicular. She has a few fine crackles in the right base. Abdomen: No distention, masses, tendern ess, or organomegaly. She is alert and oriented, moving all limbs. Normal speech. She has no rashe s. INVESTIGATIONS ON DAY OF DISCHARGE: Chemistry was normal. C-reactive protein 18. ASSESSMENT AND PLAN: 1. Right lower lobe pneumonia. As I examined the CT myself, she has a right lower lobe infiltrate. It is surprising to me that CRP was not higher. I note that this has come down substantially. I tubbs spect this is an atypical pneumonia, doxycycline would cover this. I will maintain her coverage on a oral third generation cephalosporin (cefdinir). I will give her this for 5 days. She will be on a taper of prednisone. I will give her for discharge some albuterol MDI 2 puffs 4 times a day as neede d and some guaifenesin., 2. Mild lactic acidosis, resolved. 3. Comorbidities. These are all stable. DISCHARGE MEDICATIONS: 1. Albuterol MDI 2 puffs every 6 hours as needed. 2. Cefdinir 300 mg twice daily for 5 days. 3. Doxycycline 100 mg twice daily for 5 days. 4. Guaifenesin ER 1 tablet twice daily as needed. 5. Prednisone taper 40 mg for 2 days, 20 mg for 2 days, 10 mg for 2 days, 5 mg for 2 days, then stop . This is with 5 mg tablets. 6. Trazodone 50 to 100 mg q.h.s. 7. Ibuprofen 600 mg twice daily as needed for arthritis. 8. Fluoxetine 40 mg daily. 9. Magnesium 250 mg daily. 10. Vitamin D 1000 units a day. [id number]/[facility] #: [id number]
[2019-03-23 18:00] LABS: Alpha 1 Antitrypsin A1A 160 mg/dL (100 - 190)
== END 2019-03-19 13:20 | disposition home or self-care (01) | DRG 194 ==
LOC: ED 18:49 → MEDTELE 23:57
PROVIDERS: ADMIT Internal Medicine; ATTEND Internal Medicine Geriatric Medicine
DX: J18.1 Lobar pneumonia, unspecified organism (principal); J44.0 Chronic obstructive pulmonary disease with (acute) lower respiratory infection; E87.2 Acidosis; E87.3 Alkalosis; G43.909 Migraine, unspecified, not intractable, without status migrainosus; F41.9 Anxiety disorder, unspecified; Z96.643 Presence of artificial hip joint, bilateral; R03.0 Elevated blood-pressure reading, without diagnosis of hypertension; R79.89 Other specified abnormal findings of blood chemistry; F32.9 Major depressive disorder, single episode, unspecified; Z88.6 Allergy status to analgesic agent; Z88.0 Allergy status to penicillin; Z98.51 Tubal ligation status; Z90.49 Acquired absence of other specified parts of digestive tract; Z83.3 Family history of diabetes mellitus; Z80.7 Family history of other malignant neoplasms of lymphoid, hematopoietic and related tissues; Z52.6 Liver donor
CPT/HCPCS: 36415; 71046; 71275; 80048; 80053; 81003; 82103; 82104; 82803; 83605; 83735; 83880; 84145; 84484; 85025; 85379; 85610; 85730; 86140; 87040; 87070; 87205; 87899; 93005; 94640; 99284; A9270-GY; J0456; J0696; J1650; J3475; J7512; Q9967

== ENCOUNTER 2019-12-15 14:26 | Observation (INO) | payer MEDICARE ==
--- OUTSIDE RECORDS SUMMARY | 2019-12-15 14:56 | XMS REPORT ---
:1955 Author Organization [facility] Care Team Providers Name Role Phone Gi Garcia Unavailable Unavailable PROBLEMS Unknown Problems ALLERGIES Substance Reaction Event Type Date Status Penicillin Unknown Drug Allergy Oct, Active Albuterol Unknown Drug Allergy Oct, Active ENCOUNTERS Encounter Location Date Diagnosis [facility] [address] [place], [place] Oct, [id number], [place] [address] [facility] [address], [place] Aug, [id number], Aug, [facility] [address] IMMUNIZATIONS No Known Immunizations SOCIAL HISTORY Never Assessed REASON FOR REFERRAL FUNCTIONAL STATUS PLAN OF CARE VITAL SIGNS MEDICATIONS Medication Instructions Dosage Frequency Start Date End Date Duration Status Feverfew 100 MG Active Trazadone 50 mg 1 tab POQ Active HS Prozac 40 mg 2 tab Active Magnesium 70 MG Active PROCEDURES Procedure Date Ordered Result Body Site Caries Risk Assess and Doc Low Risk Nov 01, 2019 PROPHYLAXIS - ADULT 13yrs and older Nov 01, 2019 BITEWINGS - FOUR FILMS Nov 01, 2019 RESULTS No Results REASON FOR VISIT cleaning Insurance Providers [facility] Health Member Patient Patient Patient Patient Patient Subscriber Subscriber Subscriber Group Insurance Plan Plan Plan Plan ID Relationship Address Phone Name Date of ID Name Date of No Type Insurance Insurance Insurance Coverage to Subscriber Address Phone Name Dates [facility] [phone] [facility] self Lawanda [id number] Medicare [id number] Medicare [facility] [employer] [facility] [employer] [id number] Dental
--- NOTE | 2019-12-15 15:16 | ED ---
HPI Chest Pain - HPI Summary HPI Summary: 64 year old F arriving via private car from [facility] complains of sudden onset non- radiating chest pressure while walking at 14:00 today 12/15/2019. Patient states she was at [facility] for recent increasing shortness of breath and fatigue and to be evaluated for possible polycythemia vera. Patient states she had blood work done at 13:00 today prior to her chest pressure. Patient states that she was walking when she developed sudden onset chest pressure which lasted 1-2 minutes. O2 sats were in the high 90s before, during, and after walking exercise. Dr. Benz referred patient to the ED. Patient denies chest pressure currently. She reports dizziness, light headedness, shortness of breath, fatigue. Patient denies fever, chills, erythema of eyes, sore throat, cough, abdominal pain, nausea/vomiting, black or tarry stools, dysuria, hematuria, myalgia, edema, pain or swelling in bilateral lower extremities, rash. Symptoms rated 0/10 in severity. Symptoms aggravated by nothing. Symptoms alleviated by nothing. Medications reviewed. Allergies noted. Patient states she was in the hospital in March 2019 for pneumonia. No hx DVT or PE. No FHx DVT, PE, cardiac disease. No cardiac hx. No hx diabetes. - History of Current Complaint Chief Complaint: EDChestPainROMI Time Seen by Provider: 12/15/19 15:06 Hx Obtained From: Patient Onset/Duration: Started Hours Ago - 1, Resolved Timing: Constant Initial Severity: Mild Current Severity: None Pain Intensity: 0 Pain Scale Used: 0-10 Numeric Chest Pain Radiates: No Aggravating Factor(s): Nothing Alleviating Factor(s): Nothing Associated Signs and Symptoms: Positive: Negative - fever, chills, erythema of eyes, sore throat, cough, abdominal pain, nausea/vomiting, black or tarry stools , dysuria, hematuria, myalgia, edema, pain or swelling in bilateral lower extremities, rash, Dizziness, Shortness of Breath, Lightheadedness, Other: - fatigue - Additional Pertinent History Primary Care Physician: [id number] - Allergy/Home Medications Allergies/Adverse Reactions: Allergies Allergy/AdvReac Type Severity Reaction Status Date / Time albuterol Allergy Unknown Verified 12/15/19 14:40 Reaction Details oxycodone Allergy Difficulty Verified 03/24/19 09:16 Breathing Penicillins Allergy Unknown Verified 12/15/19 14:40 Reaction Details Home Medications: Home Medications Acetaminophen TAB* [Tylenol TAB*] 650 mg PO Q6H PRN 12/15/19 [History Confirmed 12/15/19] Aspirin 81 mg CHEW TAB* [Aspirin Low Dose TAB*] 81 mg PO DAILY 12/15/19 [ History Confirmed 12/15/19] Cholecalciferol (Vitamin D3) [Vitamin D3] 25 - 50 mcg PO DAILY 12/15/19 [ History Confirmed 12/15/19] FLUoxetine CAP* [PROzac CAP*] 40 mg PO DAILY 12/15/19 [History Confirmed ] Feverfew Capsules 380 mg PO DAILY 12/15/19 [History Confirmed 12/15/19] Fexofenadine (NF) [Tessa 180 (NF)] 180 mg PO BEDTIME 12/15/19 [History Confirmed 12/15/19] Guaifenesin/Pseudoephedrne HCl [Mucus Relief D] 1 tab PO BID 12/15/19 [History Confirmed 12/15/19] Ibuprofen TAB* [Motrin TAB* 600 MG] 600 mg PO BID PRN 12/15/19 [History Confirmed 12/15/19] Levalbuterol HFA INHALER* [Xopenex Hfa Inhaler*] 2 puff INH Q4HR PRN 12/15/19 [ History Confirmed 12/15/19] Magnesium Oxide [Magnesium] 250 mg PO BEDTIME 12/15/19 [History Confirmed ] Pseudoephedrine TAB* [Sudafed TAB*] 60 mg PO DAILY PRN 12/15/19 [History Confirmed 12/15/19] PMH/Surg Hx/FS Hx/Imm Hx Endocrine/Hematology History: Denies: Hx Diabetes, Hx Anemia Cardiovascular History: Denies: Hx Hypertension, Hx Pacemaker/ICD Respiratory History: Reports: Hx Asthma - multiple pneumonias, Hx Chronic Bronchitis, Hx Pneumonia, Hx Seasonal Allergies, Other Respiratory Problems/ Disorders - pneumonia x3, bronchitis x1 GI History: Reports: Other GI Disorders - donated portion of liver 1999 Denies: Hx Jaundice History: Denies: Hx Renal Disease Musculoskeletal History: Reports: Hx Arthritis Denies: Hx Osteoporosis Sensory History: Reports: Hx Contacts or Glasses - glasses Denies: Hx Hearing Aid Opthamlomology History: Reports: Hx Contacts or Glasses - glasses Neurological History: Reports: Hx Migraine Denies: Hx Dementia Psychiatric History: Reports: Hx Anxiety, Hx Depression Denies: Hx Panic Disorder - Cancer History Hx Chemotherapy: No Hx Radiation Therapy: No - Surgical History Surgery Procedure, Year, and Place: tonsillectomy 1956. and tubal ligation 1980. Right hepatic lobectomy and cholecystectomy 1999. right knee arhtroscopy 2010. NASIR HIP REPLACEMENTS Hx Anesthesia Reactions: No Infectious Disease History: No Infectious Disease History: Reports: Hx Shingles Denies: Hx Clostridium Difficile, Hx Hepatitis, Hx of Known/Suspected MRSA, Hx Tuberculosis, Hx Known/Suspected VRE, Traveled Outside the [place] in Last 30 Days - Family History Known Family History: Positive: Other - CA Negative: Cardiac Disease Family History: NEG: DVT, PE - Social History Alcohol Use: Rare Hx Substance Use: No Substance Use Type: Reports: None Hx Tobacco Use: No Smoking Status (MU): Never Smoked Tobacco Review of Systems Positive: Fatigue. Negative: Fever, Chills Negative: Erythema Negative: Sore Throat Positive: Chest Pain Positive: Shortness Of Breath. Negative: Cough Gastrointestinal: Negative - black or tarry stools Negative: Abdominal Pain, Vomiting, Nausea Negative: dysuria, hematuria Musculoskeletal: Negative - pain or swelling in BLE Negative: Myalgia, Edema Negative: Rash Neurological: Other - light headedness, dizziness All Other Systems Reviewed And Are Negative: Yes Physical Exam - Summary Physical Exam Summary: Constitutional: Well-developed, Well-nourished, Alert. (-) Distressed Skin: Warm, Dry HENT: Normocephalic; Atraumatic Eyes: Conjunctiva normal Neck: Musculoskeletal ROM normal neck. (-) JVD, (-) Stridor, (-) Tracheal deviation Cardio: Rhythm regular, rate normal, Heart sounds normal; Intact distal pulses; The pedal pulses are 2+ and symmetric. Radial pulses are 2+ and symmetric. (-) Murmur Pulmonary/Chest wall: Effort normal. (-) Respiratory distress, (-) Wheezes, (-) Rales Abd: Soft, (-) tenderness, (-) Distension, (-) Guarding, (-) Rebound Musculoskeletal: (-) Edema Lymph: (-) Cervical adenopathy Neuro: Alert, Oriented x3 Psych: Mood and affect Normal Triage Information Reviewed: Yes Vital Signs On Initial Exam: Initial Vitals Temp Pulse Resp BP Pulse Ox 97.5 F 67 16 144/68 99 12/15/19 14:33 12/15/19 14:33 12/15/19 14:33 12/15/19 14:33 12/15/19 14:33 Vital Signs Reviewed: Yes Procedures - Sedation Patient Received Moderate/Deep Sedation with Procedure: No Diagnostics - Vital Signs Vital Signs Temp Pulse Resp BP Pulse Ox 12/15/19 14:33 97.5 F 67 16 144/68 99 - Laboratory Result Diagrams: 12/15/19 15:23 12/15/19 15:23 Lab Statement: Any lab studies that have been ordered have been reviewed, and results considered in the medical decision making process. - CT Chest/Thorax CT Interpretation Completed By: Radiologist Summary of CT Findings: NO PULMONARY ARTERIAL FILLING DEFECT TO SUGGEST PULMONARY EMBOLISM. ED physician has reviewed this imaging report. - EKG 1432 Cardiac Rate: NL EKG Rhythm: Sinus Rhythm Summary of EKG Findings: Sinus rhythm 65 BPM. Q waves in septal leads. No STEMI. ED physician has reviewed and interpreted this EKG. Re-Evaluation - Re-Evaluation First Eval Re-Evaluation Time: 17:51 Comment: patient is the bathroom Second Eval Re-Evaluation Time: 17:59 Comment: patient developed some chest tightness that resolved. patient is agreeable to admission Chest Pain Course/Dx - Course Course Of Treatment: 64 year old F arriving from [facility] complains of sudden onset non-radiating chest pressure while walking at 14:00 today 12/15/2019. Patient states she was at [facility] where she had blood work done at 13:00 today prior to her chest pressure. Patient states that she was walking when she developed sudden onset chest pressure which lasted 1-2 minutes. O2 sats were in the high 90s before, during, and after walking exercise. Dr. Benz referred patient to the ED. Patient denies chest pressure currently. She reports dizziness, light headedness, shortness of breath, fatigue. Patient denies fever, chills, erythema of eyes, sore throat, cough, abdominal pain, nausea/vomiting, black or tarry stools, dysuria, hematuria, myalgia, edema, pain or swelling in bilateral lower extremities, rash. Medications reviewed. Allergies noted. PMHx reviewed. FHx reviewed. Physical exam unremarkable. Bloodwork results with no significant abnormalities except for RBC 5.44, Hgb 16.7, Hct 48, absolute monos 0.9, BUN/creatinine 24.7. An EKG shows Q waves in septal leads. Chest/Thorax CTA shows per radiologist: NO PULMONARY ARTERIAL FILLING DEFECT TO SUGGEST PULMONARY EMBOLISM. In the ED course, the patient was given normal saline fluids. Spoke with Dr. Benz who states that patient developed chest pressure and dizziness while walking around the office. She states patient did not develop hypoxia. IL and PE are both complications of polycythemia vera. Spoke with Dr. Castle hospitalist who agrees to admit. - Diagnoses Provider Diagnoses: Unstable angina - Provider Notifications Discussed Care Of Patient With: Delia Benz Time Discussed With Above Provider: 17:36 Instructed by Provider To: Other - Dr. Benz recommends admission to the hospitalist. 1749 Dr. Castle hospitalist agrees to admit. Discharge ED - Sign-Out/Discharge Documenting (check all that apply): Patient Departure - Discharge Plan Condition: Stable Disposition: ADMITTED TO [facility] Referrals: Steffany Head MD [Primary Care Provider] - - Attestation Statements Document Initiated by Scribe: Yes Documenting Scribe: Aleksandra Rand Provider For Whom Scribe is Documenting (Include Credential): Rai Lane MD Scribe Attestation: Aleksandra Gill, scribed for Rai Lane MD on 12/15/19 at 1900.
[2019-12-15] MEDS ORDERED: NS 0.9% 1000 ML** 1,000 ML IV ONE (15:20)
[2019-12-15 15:31] LABS: ABS Eosinophils 0.1 10^3/ul (0-0.6); ABS Lymphocytes 1.5 10^3/ul (1.0-4.8); ABS Monocytes 0.9 10^3/ul (0-0.8); ABS Neutrophils 6.1 10^3/ul (1.5-7.7); Eosinophil % 0.7 %; Hematocrit 48 % (35-47); Hemoglobin 16.7 g/dL (12.0-16.0); Lymphocyte % 17.4 %; Mean Corpuscular HGB Conc 35 g/dL (31-36); Mean Corpuscular Hemoglobin 31 pg (27-31); Mean Corpuscular Volume 89 fL (80-97); Mean Platelet Volume 8.2 fL (7.4-10.4); Nucleated Red Blood Cells % 0.1; Platelet Count 234 10^3/uL (150-450); Red Blood Count 5.44 10^6 /uL (3.70-4.87); Red Cell Distribution Width 14 % (10-15); White Blood Count 8.6 10^3/uL (3.5-10.8)
[2019-12-15 16:02] LABS: Albumin 4.4 g/dL (3.2-5.2); Albumin/Globulin Ratio 1.6 (1-3); BUN/Creatinine Ratio 24.7 (8-20); Calcium 9.8 mg/dL (8.6-10.3); EGFR African American 96.5 (>60); EGFR Non-African American 79.8 (>60); Globulin 2.7 g/dL (2-4); Potassium 3.7 mmol/L (3.5-5.0); Total Bilirubin 0.6 mg/dL (0.2-1.0); Total Protein 7.1 g/dL (6.4-8.9)
[2019-12-15] MEDS ORDERED: Iohexol 350* (CONTRAST) 500 ML MDV IV ONE (16:17)
[2019-12-15] MEDS ORDERED: Acetaminophen TAB* 325 MG PO PRN (18:05)
[2019-12-15] MEDS ORDERED: Morphine INJ* 2 MG/ML 1 ML SYRINGE (TWO MG - NEW SYRINGE VERSION) IV PRN (18:05)
[2019-12-15] MEDS ORDERED: Temazepam CAP* 15 MG PO PRN (18:05)
[2019-12-15] MEDS ORDERED: Levalbuterol HFA INHALER* 1 PUFF MDI INH PRN (18:10)
[2019-12-15] MEDS ORDERED: Pseudoephedrine TAB* 60 MG PO PRN (18:10)
[2019-12-15] MEDS ORDERED: Ibuprofen TAB* 600 MG PO PRN (18:10)
[2019-12-15] MEDS ORDERED: traZODone TAB* 50 MG TAB PO PRN (18:10)
[2019-12-15] MEDS ORDERED: NS 0.9% 1000 ML** 1,000 ML IV SCH (18:15)
[2019-12-15] MEDS ORDERED: Aspirin TAB* 325 MG PO ONE (18:50)
[2019-12-15] MEDS ORDERED: Enoxaparin(*) 40 MG/0.4 ML SYR SUBCUT SCH (20:00)
--- NOTE | 2019-12-15 20:46 | HP ---
CC: Steffany Head; Dr. Benz * HISTORY AND PHYSICAL: DATE OF ADMISSION: 12/15/19 PRIMARY CARE PHYSICIAN: Dr. Steffany Head. CHIEF COMPLAINT: Chest pain. HISTORY OF PRESENT ILLNESS: Lawanda Ding is a 64-year-old female with history of recently diagnosed polycythemia who actually went to see Dr. Benz in regard of her possibility of polycythemia today. Dr. Benz walked the patient in her examination room. The patient stated that she did "4 brisk rounds" around the room and started feeling shortness of breath, lightheaded, and developed substernal chest pressure when she finished walking. The chest pain was described as an ache substernally and localized at the lower sternum. The patient also stated that she has not eaten since 10 a.m. She felt that belching somewhat released the pressure. She came into the hospital for evaluation of chest pain. The patient remembers that ever since her diagnosis of pneumonia in the mid of 2018, she had been having problems with dyspnea on exertion. She denies any chest pain until today. She developed another episode of substernal chest pain while she was sitting in the ED and belching released it again. She is going to be placed on overnight observation with the diagnosis of chest pain to rule out angina. PAST MEDICAL HISTORY: 1. Working diagnosis of polycythemia. 2. Osteoarthritis. 3. Anxiety. 4. Migraine headache. 5. Status post being a partial liver donor for her friend. 6. Bilateral hip replacement. 7. . MEDICATIONS: 1. Xopenex 2 puffs inhalation on a p.r.n. basis. 2. Trazodone 50 mg at bedtime p.r.n. 3. Sudafed 50 mg daily p.r.n. 4. Fluoxetine 40 mg daily. 5. Mag-Ox 150 mg at bedtime. 6. Mucus Relief tablet 1 tablet b.i.d. p.r.n. 7. Ibuprofen 600 mg b.i.d. p.r.n. 8. Tessa 180 mg at bedtime. 9. Feverfew capsules 380 mg daily. 9. Vitamin D3 on a daily basis. 10. Aspirin 81 mg daily. 11. Acetaminophen on a p.r.n. basis. ALLERGIES: OXYCODONE, ALBUTEROL, PENICILLIN. FAMILY HISTORY: Positive for father dying of unknown cause, but with history of bronchiectasis. He at the age of 77. Mother of lymphoma. SOCIAL HISTORY: The patient denies any tobacco or drug use. She rarely uses alcohol. 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 Her Ben is her surrogate. REVIEW OF SYSTEMS: Please see history of present illness. All the remaining systems were reviewed with the patient and were otherwise negative. PHYSICAL EXAMINATION GENERAL: The patient is a pleasant 64-year-old female who is in no acute distress. The patient is alert and oriented x3. VITAL SIGNS: Blood pressure of 144/68, heart rate of 67 and regular, respiratory rate 16, oxygen saturation 99% on room air, temperature 97.5. HEENT: Head: Atraumatic, normocephalic. Eyes: Pupils are equal, reactive to light and accommodation. Oropharynx clear. Mucosa moist. NECK: Supple. No JVD. No bruits bilaterally. RESPIRATORY: Clear to auscultation bilaterally. CARDIOVASCULAR: Regular rate and rhythm. No murmur. ABDOMEN: Soft, nontender. Bowel sounds are present in all 4 quadrants. EXTREMITIES: There is no edema. Pulses are +2 bilaterally. No clubbing or cyanosis. SKIN: On evaluation of the skin, no ecchymotic area of rashes noted. DIAGNOSTIC STUDIES/LAB DATA: White blood cell count of 8.6, hemoglobin of 16.7 , hematocrit of 48, MCV of 89 and platelets of 234. D-dimer was 243. Sodium was 138, potassium 3.7, chloride 103, carbon dioxide 24, BUN 18, creatinine 0.73. Liver function is unremarkable. Troponin 0 x2. The patient's EKG was unchanged from prior one from March 2019. It showed normal sinus rhythm with heart rate of 65 beats per minute with no acute changes. The patient had a CT angiogram obtained in the emergency department which was read as: Impression "no pulmonary artery fading effect to suggest pulmonary embolism." ASSESSMENT AND PLAN: 1. Substernal chest pressure and shortness of breath with exercise. In addition, the patient is going to be placed on overnight observation for cardiac evaluation in the morning with treadmill stress test. The patient stated although she walked around the room and she felt short of breath ,she never had low oxygen saturation. In fact, her oxygen saturations are 99% to 100 % on room air currently. The patient has been placed on daily aspirin. 2. For DVT prophylaxis, the patient will be placed on Lovenox subcutaneously. 4. The patient's code status is full. Her surrogate is her . TIME SPENT: Approximately 62 minutes was spent on admission of this patient, more than half of that time was spent [id number] with the patient during the interview and physical exam. [id number] #: [id number] CLARA
[2019-12-15] MEDS ORDERED: Magnesium Oxide TAB* 400 MG PO SCH (21:00)
[2019-12-16 05:04] LABS: ABS Eosinophils 0.1 10^3/ul (0-0.6); ABS Lymphocytes 1.4 10^3/ul (1.0-4.8); ABS Monocytes 0.6 10^3/ul (0-0.8); ABS Neutrophils 2.2 10^3/ul (1.5-7.7); Eosinophil % 2.8 %; Hematocrit 42 % (35-47); Hemoglobin 14.6 g/dL (12.0-16.0); Lymphocyte % 32.5 %; Mean Corpuscular HGB Conc 35 g/dL (31-36); Mean Corpuscular Hemoglobin 31 pg (27-31); Mean Corpuscular Volume 88 fL (80-97); Mean Platelet Volume 8.6 fL (7.4-10.4); Platelet Count 203 10^3/uL (150-450); Red Blood Count 4.77 10^6 /uL (3.70-4.87); Red Cell Distribution Width 14 % (10-15); White Blood Count 4.5 10^3/uL (3.5-10.8)
[2019-12-16 05:15] LABS: Calcium 8.7 mg/dL (8.6-10.3); Potassium 4.1 mmol/L (3.5-5.0)
[2019-12-16 05:20] LABS: BUN/Creatinine Ratio 25.4 (8-20); EGFR African American 99.7 (>60); EGFR Non-African American 82.4 (>60)
[2019-12-16] MEDS ORDERED: Aspirin 81 mg CHEW TAB* 81 MG TAB.CHEW PO SCH (09:00)
[2019-12-16] MEDS ORDERED: FLUoxetine CAP* 20 MG PO SCH (09:00)
[2019-12-16] MEDS ORDERED: Regadenoson* 0.4 MG/5 ML SYRINGE ONE (09:38)
[2019-12-16 11:44] VITALS: BP 131/67
== END 2019-12-16 15:09 | disposition home or self-care (01) ==
LOC: ED 14:26 → MEDTELE 18:05
PROVIDERS: ADMIT Internal Medicine; ATTEND Internal Medicine Geriatric Medicine
DX: R07.9 Chest pain, unspecified (principal); M19.90 Unspecified osteoarthritis, unspecified site; R06.02 Shortness of breath; F41.9 Anxiety disorder, unspecified; J45.909 Unspecified asthma, uncomplicated; F32.9 Major depressive disorder, single episode, unspecified; Z96.643 Presence of artificial hip joint, bilateral; Z87.59 Personal history of other complications of pregnancy, childbirth and the puerperium; Z79.82 Long term (current) use of aspirin; Z79.899 Other long term (current) drug therapy; Z88.1 Allergy status to other antibiotic agents; Z88.5 Allergy status to narcotic agent; Z88.9 Allergy status to unspecified drugs, medicaments and biological substances; Z98.51 Tubal ligation status; Z80.9 Family history of malignant neoplasm, unspecified
CPT/HCPCS: 36415; 71275; 78452; 80048; 80053; 83605; 84484; 85025; 93005; 93017; 96372; 99285; A9270-GY; A9502; G0378; J1650; J2785; Q9967